=== PATIENT | male | born 1955 | race Caucasian/White ===

== ENCOUNTER → 2019-05-10 00:01 | Outpatient (RCR) | payer OTHER, SELFPAY | LOC: ONCMED 04-11 06:14 | PROVIDERS: Family Provider Emergency Medicine Emergency Medical Services; Visit Provider Internal Medicine Hematology & Oncology | DX: Z51.11 Encounter for antineoplastic chemotherapy (principal); C15.5 Malignant neoplasm of lower third of esophagus; D70.1 Agranulocytosis secondary to cancer chemotherapy; T45.1X5A Adverse effect of antineoplastic and immunosuppressive drugs, initial encounter; Z45.2 Encounter for adjustment and management of vascular access device; I48.91 Unspecified atrial fibrillation; J90 Pleural effusion, not elsewhere classified; G62.0 Drug-induced polyneuropathy; Z79.01 Long term (current) use of anticoagulants; Z90.5 Acquired absence of kidney | CPT/HCPCS: 36415; 36591 ×2; 80053 ×3; 85025 ×4; 96367 ×2; 96368 ×2; 96372 ×2; 96413 ×2; 96415 ×2; 96416 ×2; 96417 ×2; 96523; 99214 ×2; J0640 ×2; J1100 ×2; J1453 ×2; J1642 ×7; J2469 ×2; J2505 ×2; J3490 ×2; J7050 ×2; J9171 ×2; J9263 ×4 ==

== ENCOUNTER 2019-06-10 05:46 | Outpatient (RCR) | payer OTHER, SELFPAY ==
--- NOTE | 2019-05-26 | CT_ITS ---
Radation Therapy Planning CT images; total exam DLP: 1568.77 mGy-cm MTDD
[2019-06-06 13:51] LABS: Basophils % 0.5 %; Eosinophils # 0.4 10^3/uL (0.0-0.8); Eosinophils % 4.7 %; Hematocrit 38.9 % (42.0-52.0); Hemoglobin 12.8 g/dL (11.7-16.6); Lymphocytes # 2.4 10^3/uL (0.8-4.8); Lymphocytes % 31.6 %; Mean Corpuscular HGB Conc 32.9 g/dL (30.0-36.0); Mean Corpuscular Hemoglobin 29.5 pg (28.0-34.0); Mean Corpuscular Volume 89.6 fL (80-94); Mean Platelet Volume 9.2 fL (7.4-10.4); Monocytes # 0.5 10^3/uL (0.2-0.9); Monocytes % 6.3 %; Neutrophils # 4.3 10^3/uL (1.8-7.7); Neutrophils % 56.6 %; Nucleated Red Blood Cells % 0 %; Platelet Count 288 10^3/cmm (130-400); Red Blood Count 4.34 10^6/uL (4.1-5.3); Red Cell Distribution Width 15.7 % (12.1-15.1); White Blood Count 7.5 10^3/uL (4.0-10.0)
[2019-06-06 14:09] LABS: Alanine Aminotransferase 10 U/L (0-41); Alkaline Phosphatase 73 IU/L (40-130); Aspartate Amino Transferase 15 U/L (0-40); Blood Urea Nitrogen 16 mg/dL (8-23); Calcium 9.4 mg/dL (8.5-10.5); Carbon Dioxide 23 mmol/L (22-29); Chloride 103 mmol/L (98-107); Globulin 1.9 g/dL (1.3-4.6); Glomerular Filtration Rate 67.4 mL/min (90-130); Glucose 148 mg/dL (74-106); Sodium 137 mmol/L (136-145); Total Bilirubin 0.7 mg/dL (0.15-1.2); Total Protein 5.9 g/dL (6.6-8.7)
[2019-06-07] MEDS: sodium chloride 0.9% 250 ML 75 ML IV (08:20)
== END 2019-06-10 23:59 | disposition home or self-care (01) ==
LOC: ONCMED 05:46
PROVIDERS: Nurse Practitioner; Family Provider Emergency Medicine Emergency Medical Services; PCP Emergency Medicine Emergency Medical Services; Visit Provider Radiology Radiation Oncology
DX: Z51.0 Encounter for antineoplastic radiation therapy (principal); Z51.11 Encounter for antineoplastic chemotherapy; C15.5 Malignant neoplasm of lower third of esophagus; C77.8 Secondary and unspecified malignant neoplasm of lymph nodes of multiple regions; I48.91 Unspecified atrial fibrillation; J44.9 Chronic obstructive pulmonary disease, unspecified; F10.21 Alcohol dependence, in remission; I10 Essential (primary) hypertension; F17.210 Nicotine dependence, cigarettes, uncomplicated
CPT/HCPCS: 36591; 77263; 77280; 77290; 77300; 77301; 77334; 77338; 77386; 77470; 80053; 85025; 96367; 96413; 96417; 99205; J1100; J1200; J2469; J3490; J7030; J7050; J9045; J9267; Q9967

== ENCOUNTER 2019-07-08 05:42 | Outpatient (RCR) | payer OTHER, SELFPAY ==
[2019-06-13 09:01] LABS: Basophils % 0.5 %; Eosinophils # 0.4 10^3/uL (0.0-0.8); Eosinophils % 5.9 %; Hemoglobin 13.1 g/dL (11.7-16.6); Lymphocytes % 15.9 %; Mean Corpuscular HGB Conc 32.8 g/dL (30.0-36.0); Mean Corpuscular Hemoglobin 29.4 pg (28.0-34.0); Mean Corpuscular Volume 89.7 fL (80-94); Mean Platelet Volume 10.4 fL (7.4-10.4); Monocytes # 0.2 10^3/uL (0.2-0.9); Monocytes % 2.3 %; Neutrophils # 4.9 10^3/uL (1.8-7.7); Neutrophils % 74.8 %; Nucleated Red Blood Cells % 0 %; Platelet Count 306 10^3/cmm (130-400); Red Blood Count 4.46 10^6/uL (4.1-5.3); Red Cell Distribution Width 15.4 % (12.1-15.1); White Blood Count 6.5 10^3/uL (4.0-10.0)
[2019-06-13 09:12] LABS: Alanine Aminotransferase 12 U/L (0-41); Albumin Level 3.5 g/dL (3.5-5.2); Alkaline Phosphatase 77 IU/L (40-130); Anion Gap 15.2 (5-19); Aspartate Amino Transferase 16 U/L (0-40); Blood Urea Nitrogen 14 mg/dL (8-23); Calcium 9.2 mg/dL (8.5-10.5); Carbon Dioxide 25 mmol/L (22-29); Chloride 102 mmol/L (98-107); Globulin 2.5 g/dL (1.3-4.6); Glucose 138 mg/dL (74-106); Potassium 4.2 mmol/L (3.5-5.1); Sodium 138 mmol/L (136-145)
[2019-06-14] MEDS: sodium chloride 0.9% 250 ML 75 ML IV (10:10)
--- NOTE | 2019-06-14 10:20 | ONC FU_ITS ---
Dr. Hatch follow up note Patient: Richard Martin < Unit #: [id number]: 1955 Dicatated By: Srinivas Hatch M.D.Date of Visit:Jun 14, 2019 Onc Med Follow-up/Prog Note History of Present Illness: Mr. Ramos, is a 64-year-old gentleman with history of epigastric pain. Initially it was thought to be due to cardiac, but further evaluation led to GI workup with an EGD/colonoscopy done on 09/28/2018. The EGD exam showed severe inflammation noted in the distal esophagus, biopsies were obtained which confirmed adenocarcinoma.With normal expression of MMR/MSI, HER-2/evgeny negative, PDL 1 negative Stomach and duodenal exam was normal whereas colonoscopy showed 5 mm sessile polyp in hepatic flexure and in descending colon and in the rectum, there were removed ,came back benign. Patient denied any dysphagia, denies any weight loss, denies any hemoptysis or hematemesis, denies any jaundice, denies any shortness of breath. History of atrial fibrillation, on amlodipine and Eliquis He denied any bony pain or other pain, except chronic left upper quadrant abdominal pain which is there off and on for the last 10-12 years, when, as per patient he underwent pancreatic surgery for elevated white blood counts. About year ago patient underwent 'spots' removal from left kidney at [facility] in [place], no further treatment was offered but active surveillance and now scheduled for CT scan of abdomen on 09/24/[address] [place] PET scan done on 10/23/2018 showed hypermetabolic primary esophageal carcinoma. Malignant upper abdominal lymphadenopathy, suspicious mediastinal lymphadenopathy subcentimeter right lower lobe nodule is too small to characterize. Started on FLOT regimen on on 12/23/2018. CT PET scan done after 3 cycles of chemotherapy on 01/22/2019 showed interval improvement in the distal esophageal carcinoma Resolution of upper abdominal and mediastinal lymphadenopathy New small right pleural effusion Patient was referred to GI surgical oncology at [facility], was evaluated by on 02/14/2019 as per discussion with him that discuss about patient in the tumor board and concluded that patient is not a candidate for esophagectomy because of extent of disease and recommended follow-up CT PET scan and continue with palliative chemotherapy. Follow-up CT PET scan after 7 cycles of FLOT regimen done on 04/30/2019 showed excellent response, no evidence of recurrent or residual malignancy. Abnormal uptake in the distal esophagus seen on prior study has normalized on the current, indicating complete response to therapy At that point patient decided not to continue with systemic chemotherapy because of related side effects and toxicity as patient has high risk for local recurrence so role of consolidation therapy with combined chemoradiation was discussed and patient was referred to radiation oncology for evaluation and radiation oncology concur with the plan eventually patient started on combined chemoradiation with weekly carboplatin/Taxol on 06/07/2019. Came for follow-up, denies any specific complaints, no nausea vomiting no fever no chills no diarrhea constipation no mouth sores no dysphagia. No jaundice. No peripheral numbness. Tolerating combined chemoradiation with weekly carboplatin/Taxol well. Medications: amLODIPine Besylate 1 Tablet (of 10 mg) Oral daily, Apixaban 1 Tablet (of 5 mg) Oral b.i.d., Ativan 0.5 - 1 Tablet (of 1 mg) Oral t.i.d., Lisinopril 1 Tablet (of 40 mg) Oral b.i.d., Prochlorperazine Maleate 1 Tablet (of 10 mg) Oral q 4 hours, Sildenafil Citrate 1 Tablet (of 100 mg) Oral PRN, Vitamin D 1 Tablet Oral daily Allergies: No Known Allergies. Review of Systems: Constitutional - Appetite is good and weight is stable. No fever, chills, hot flashes, or night sweats. Energy level is fair, ENMT - Positive for sinus congestion/drainage. No mouth sores. No sore throat. No difficulty swallowing, Hematologic/Lymphatic - No abnormal bruising or bleeding, Respiratory - Positive for shortness of breath and cough. No pleuritic pain or hemoptysis, Cardiovascular - No angina pain. Pt reports occasional palpitations, Gastrointestinal - Positive for occasional nausea. No vomiting. No heartburn or acid reflux. No diarrhea or constipation. No blood in the stool or black stools, Genitourinary (M) - No dysuria or hematuria. No urinary frequency. No urgency or incontinence, Musculoskeletal - Pt reports bone pain, Neurologic - No headache or dizziness. No numbness/paresthesias or other focal neurologic symptoms, Psychiatric - No anxiety or depression. No insomnia. Vital Signs: Performed on Jun 14, 2019 09:37 Height - 72.00 in Weight - 195.6 lbs Temperature - 97.6 F Pulse - 63 Respiration - 16 BP - 136/93 mm(hg) O2 Sat - 98 % Pain - 0 Performed on Jun 14, 2019 09:37 BMI - 26.528 kg/m2 (HIGH) Performed on Jun 14, 2019 08:33 Height - 72.00 in Weight - 195.6 lbs (LOW) BSA - 2.11 sq.m BMI - 26.53 Temperature - 97.6 F (LOW) Pulse - 63 /min Respiration - 16 /min BP - 136/93 mm(hg) O2 Sat - 98 % Pain - 0 Performance Status: 0 - Fully active, able to carry on all predisease activities without restrictions. (ECOG) Physical Examination: ENMT - Sinuses are nontender. No oral exudates, ulcers, masses, thrush or mucositis. Oropharynx clear. Tongue normal, Respiratory - Lungs are clear to auscultation without rhonchi or wheezing, Cardiovascular - Regular rate and rhythm of heart, Abdomen - Non-tender, non-distended Good bowel sounds. No guarding or rebound tenderness. No pulsatile masses, Extremities - no edema. Lab/Imaging: Test performed on Jun 13, 2019 08:15 Sodium 138 mmol/L Potassium 4.2 mmol/L Chloride 102 mmol/L CO2 25 mmol/L Anion Gap 15.2 BUN 14 mg/dL Creatinine 0.9 mg/dL Cr Clearance (Est) 104.3800 mL/min eGFR 85.0 mL/min Glucose 138 mg/dL Calcium 9.2 mg/dL Protein, Total 6.0 g/dL Albumin 3.5 g/dL Globulin 2.5 g/dL Bilirubin, Total 1.0 mg/dL ALT (SGPT) 12 U/L AST (SGOT) 16 U/L Alkaline Phosphatase 77 IU/L WBC 6.5 10 3/uL RBC 4.46 10 6/uL HGB 13.1 g/dL HCT 40.0 % MCV 89.7 fL MCH 29.4 pg MCHC 32.8 g/dL RDW 15.4 % Platelet Count 306 10 3/cmm MPV 10.4 fL Neutrophils 4.9 10 3/uL Lymphocytes 1.0 10 3/uL Monocytes 0.2 10 3/uL Eosinophils 0.4 10 3/uL Basophils 0.0 10 3/uL Neutrophil % 74.8 % Lymphocyte % 15.9 % Monocyte % 2.3 % Eosinophil % 5.9 % Basophils % 0.5 % Test performed on Jan 03, 2019 09:50 CBC Slide Review SLIDE REVIEW PERFORM SLIDE REVIEW AGREES WITH AUTOMATED RESULTS ST Impression: 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 pylori CT PET scan done on 10/23/2018 showed hypermetabolic activity in the distal one third of esophagus and the mass measuring 3.4 x 4.5 cm with SUV of 7.8. Metastatic adenopathy is present in the gastrohepatic ligament, peripancreatic nodes, and retroperitoneal lymph node in the right and left periaortic distributions. The index node in the gastrohepatic ligament measures 1.7 cm with FDG 3.1. In the mediastinum, there are multiple suspicious nodes in the right paratracheal and left paraesophageal territories. These have a high likelihood of malignancy Clinical stage T2-3, , N2,, MX HER-2/evgeny negative, PDL 1 negative, normal expression of MMR/MSI History of pancreatic surgery about 10-12 years ago for elevated white blood count now with off and on left upper quadrant pain/discomfort History of spot removal from his left kidney about year ago in [facility], now being observed with active surveillance. History of cholecystectomy Colonoscopy done on 09/28/2018 showed normal exam except benign sessile polyps removal from hepatic flexure, descending colon and rectum and also showed internal hemorrhoids. 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 Molecular studies negative for HER-2/evgeny status, and PDL 1. And normal expression of MMR/MSI. recommended treatment with FLOT regimen which will be given every 2 weeks ???[address] PET scan to assedess disease response. recommended adjusting his 5-FU dose by 15% for the first treatment, if tolerated then increase to the 100% as per protocol. Mr. Martin began his first cycle of treatment on 12/13/2018. He did have chemotherapy-induced neutropenia and was supported with Neupogen. His counts are recovered well. now on neulasta CT PET scan done after 3 cycles of chemotherapy with FLOT regimen showed good response interval improvement in distal esophageal carcinoma Resolution of upper abdominal and mediastinal lymphadenopathy New, small right pleural effusion. CT PET scan done after 7 cycles of FLOT regimen showed excellent response. No evidence of recurrent or residual malignancy. Abnormal uptake seen in distal esophageal on prior study has normalized. Patient decided to discontinue systemic chemotherapy on 04/25/2019 because of related side effect and toxicity, knowing the risk versus benefits with his decision. At that time role of consolidation therapy with combined chemoradiation therapy with weekly carboplatin and Taxol was discussed. Patient was referred to radiation oncology and they concur with the plan patient was started on combined chemoradiation with weekly carboplatin Taxol on 06/07/2019 Plan: Discussed with patient regarding his labs white blood count 6.5 hemoglobin 13.1 crit 40 platelets 306,000 CMP within normal limits Clinically, patient is doing well, tolerating combined chemoradiation with weekly carboplatin/Taxol well but with expected side effects. We'll proceed with the next weekly dose of carboplatin/Taxol today and then return to clinic in 1 week with CBC CMP. Signed By: Srinivas Hatch M.D. <<Signature on File>>
--- NOTE | 2019-06-14 11:51 | ONCRAD TMN_ITS ---
Radiation Oncology Weekly Treatment Management Patient: Richard Martin MR#: [id number] : 1955> Age: 64> Sex: Male Dictated by: Dr. Rohith Welch Date of Service: 06/14/2019 Referring Physician(s) : Srinivas Hatch Primary Diagnosis: T45.1X5A - Adverse effect of antineoplastic and immunosuppressive drugs, initial encounter, Diagnosed 12/21/2018 (Active) D70.1 - Agranulocytosis secondary to cancer chemotherapy, Diagnosed 12/21/2018 (Active) C15.5 - Malignant neoplasm of lower third of esophagus, Diagnosed 09/28/2018 (Active) Radiotherapy to date: Course: Esophagus 2019, Treatment Site: [id number], Ref. ID: [id number], Energy: 15X/6X, Dose/Fx (cGy): 180, #Fx: , Dose Correction (cGy): 0, Total Dose (cGy): 1,080, Start Date: 06/07/2019, Elapsed Days: 7 Current Complaints/Interval History: Constitutional Complains of mild fatigue, and night sweats. Denies lack of appetite, fever and change in weight. ENMT Denies dysphagia but has mild odynophagia off and on. Respiratory Notes dyspnea associated with normal activity and wheezing occasionally. Denies cough and hiccoughs. Gastrointestinal Complains of nausea. Denies abdominal pain, constipation, diarrhea, heartburn / dyspepsia and vomiting. Current Medications: AmLODIPine Besylate, apixaban, ativan, cARBOplatin, dexamethasone, dexamethasone Sodium Phosphate, diphenhydrAMINE HCl, famotidine in NaCl, levoFLOXacin, lisinopril, lORazepam, neupogen, pACLitaxel, palonosetron HCl, prochlorperazine Maleate, prochlorperazine Maleate, sildenafil Citrate, vitamin D. Allergies: No Known Allergies Vital Signs: Performed on 06/14/2019 8:33 AM Height - 72.00 in, Weight - 195.6 lbs (low), BSA - 2.11 sq.m, BMI - 26.53, Temperature - 97.6 f (low), Pulse - 63 /min, Respiration - 16 /min, O2 Sat - 98 %, Pain - 0 and BP - 136/ 93 mm(hg)(/high). Physical Exam: Appears stable, no skin erythema or desquamation. Performance Status: 0 - Fully active, able to carry on all predisease activities without restrictions. (ECOG) Lab: Test performed on 06/13/2019 8:15 AM HCT - 40.0 % (low), RDW - 15.4 % (high), eGFR - 85.0 ml/min (low), Glucose - 138 mg/dl (high) and Protein, Total - 6.0 g/dl (low). Imaging: No new diagnostic imaging was performed since the last weekly treatment visit. All radiation therapy related imaging (including but not limited to CBCT generated images) was reviewed. Appropriate changes, if any, were made to assure accurate target localization. Impression/Plan: Tolerating treatment well with expected side effects. Continue treatment as planned. CPT: 13517 Signed by: Dr. Rohith Welch>06/14/2019 11:49:50 AM <<Signature on File>>
[2019-06-20 08:56] LABS: Basophils % 0.6 %; Eosinophils # 0.1 10^3/uL (0.0-0.8); Eosinophils % 3.1 %; Hematocrit 35.6 % (42.0-52.0); Hemoglobin 11.7 g/dL (11.7-16.6); Lymphocytes # 0.3 10^3/uL (0.8-4.8); Lymphocytes % 10.3 %; Mean Corpuscular HGB Conc 32.9 g/dL (30.0-36.0); Mean Corpuscular Hemoglobin 28.5 pg (28.0-34.0); Mean Corpuscular Volume 86.6 fL (80-94); Monocytes # 0.1 10^3/uL (0.2-0.9); Monocytes % 2.2 %; Neutrophils # 2.7 10^3/uL (1.8-7.7); Neutrophils % 83.2 %; Nucleated Red Blood Cells % 0 %; Platelet Count 247 10^3/cmm (130-400); Red Blood Count 4.11 10^6/uL (4.1-5.3); Red Cell Distribution Width 15.3 % (12.1-15.1); White Blood Count 3.2 10^3/uL (4.0-10.0)
[2019-06-20 09:15] LABS: Alanine Aminotransferase 13 U/L (0-41); Albumin Level 3.2 g/dL (3.5-5.2); Alkaline Phosphatase 75 IU/L (40-130); Anion Gap 14.7 (5-19); Aspartate Amino Transferase 18 U/L (0-40); Blood Urea Nitrogen 19 mg/dL (8-23); Calcium 9.1 mg/dL (8.5-10.5); Carbon Dioxide 23 mmol/L (22-29); Chloride 104 mmol/L (98-107); Globulin 2.1 g/dL (1.3-4.6); Glomerular Filtration Rate 97.3 mL/min (90-130); Glucose 101 mg/dL (65-115); Potassium 4.7 mmol/L (3.5-5.1); Sodium 137 mmol/L (136-145); Total Bilirubin 1.1 mg/dL (0.15-1.2); Total Protein 5.3 g/dL (6.6-8.7)
--- NOTE | 2019-06-21 09:59 | ONCRAD TMN_ITS ---
Radiation Oncology Weekly Treatment Management Patient: Richard Martin MR#: [id number] : 1955> Age: 64> Sex: Male Dictated by: Dr. Rohith Welch Date of Service: 06/21/2019 Referring Physician(s) : Srinivas Hatch M.D. Primary Diagnosis: T45.1X5A - Adverse effect of antineoplastic and immunosuppressive drugs, initial encounter, Diagnosed 12/21/2018 (Active) D70.1 - Agranulocytosis secondary to cancer chemotherapy, Diagnosed 12/21/2018 (Active) C15.5 - Malignant neoplasm of lower third of esophagus, Diagnosed 09/28/2018 (Active) Radiotherapy to date: Course: Esophagus 2019, Treatment Site: [id number], Ref. ID: , [id number], Energy: 15X/6X, Dose/Fx (cGy): 180, #Fx: , Dose Correction (cGy): 0, Total Dose (cGy): 1,980, Start Date: 06/07/2019, Elapsed Days: 14 Current Complaints/Interval History: Constitutional Complains of mild fatigue, night sweats which occur occasionally. Denies lack of appetite, fever and change in weight. ENMT Complains of dysphagia and also has odynophagia occasionally and altered taste. Integumentary No redness to the area of treatment Respiratory Has a mild cough and dyspnea associated with normal activity. Denies wheezing. Gastrointestinal Complains of nausea. Denies heartburn / dyspepsia and vomiting. Current Medications: AmLODIPine Besylate, apixaban, ativan, cARBOplatin, dexamethasone, dexamethasone Sodium Phosphate, diphenhydrAMINE HCl, famotidine in NaCl, levoFLOXacin, lisinopril, lORazepam, neupogen, pACLitaxel, palonosetron HCl, prochlorperazine Maleate, prochlorperazine Maleate, sildenafil Citrate, vitamin D. Allergies: No Known Allergies Vital Signs: Performed on 06/21/2019 9:32 AM BMI - 26.501 kg/m2 (high), Height - 72.00 in, Weight - 195.4 lbs, Temperature - 97.8 f, Pulse - 94, Respiration - 18, O2 Sat - 100 %, Pain - 2, BP - 133/ 90 mm(hg) Physical Exam: Appears stable, no skin erythema or desquamation. Performance Status: 0 - Fully active, able to carry on all predisease activities without restrictions. (ECOG) Lab: Test performed on 06/20/2019 8:35 AM WBC - 3.2 10 3/ul (low), HCT - 35.6 % (low), RDW - 15.3 % (high), Lymphocytes - 0.3 10 3/ul (low), Monocytes - 0.1 10 3/ul (low), Protein, Total - 5.3 g/dl (low) and Albumin - 3.2 g/dl (low). Imaging: No new diagnostic imaging was performed since the last weekly treatment visit. All radiation therapy related imaging (including but not limited to CBCT generated images) was reviewed. Appropriate changes, if any, were made to assure accurate target localization. Impression/Plan: Tolerating treatment well with expected side effects. Continue treatment as planned. I recommended magic mouth wash but the patient declined it for now. CPT: 45458 Signed by: Dr. Rohith Welch>06/21/2019 9:58:32 AM <<Signature on File>>
[2019-06-21] MEDS: sodium chloride 0.9% 250 ML 300 ML IV (10:16)
--- NOTE | 2019-06-21 10:22 | ONC FU_ITS ---
[facility] Patient Note Patient: Richard Martin < Unit #: [id number]: 1955 Dictated By: Darya WattsDate of Visit: Jun 21, 2019 Onc MED Follow-Up/Prog Note Chief Complaint: Esophageal cancer History of Present Illness: Mr. Ramos is a 64-year-old gentleman with history of epigastric pain. Initially it was thought to be due to cardiac, but further evaluation led to GI workup with an EGD/colonoscopy done on 09/28/2018. The EGD exam showed severe inflammation noted in the distal esophagus, biopsies were obtained which confirmed adenocarcinoma.With normal expression of MMR/MSI, HER-2/evgeny negative, PDL 1 negative Stomach and duodenal exam was normal whereas colonoscopy showed 5 mm sessile polyp in hepatic flexure and in descending colon and in the rectum, there were removed ,came back benign. Patient denied any dysphagia, denies any weight loss, denies any hemoptysis or hematemesis, denies any jaundice, denies any shortness of breath. History of atrial fibrillation, on amlodipine and Eliquis He denied any bony pain or other pain, except chronic left upper quadrant abdominal pain which is there off and on for the last 10-12 years, when, as per patient he underwent pancreatic surgery for elevated white blood counts. About year ago patient underwent 'spots' removal from left kidney at [facility] in [place], no further treatment was offered but active surveillance and scheduled for CT scan of abdomen on 09/24/[address] [place] PET scan done on 10/23/2018 showed hypermetabolic primary esophageal carcinoma. Malignant upper abdominal lymphadenopathy, suspicious mediastinal lymphadenopathy subcentimeter right lower lobe nodule is too small to characterize. Started on FLOT regimen on on 12/23/2018. CT PET scan done after 3 cycles of chemotherapy on 01/22/2019 showed interval improvement in the distal esophageal carcinoma Resolution of upper abdominal and mediastinal lymphadenopathy New small right pleural effusion Patient was referred to GI surgical oncology at [facility], was evaluated by on 02/14/2019 as per discussion with him that discuss about patient in the tumor board and concluded that patient is not a candidate for esophagectomy because of extent of disease and recommended follow-up CT PET scan and continue with palliative chemotherapy. Follow-up CT PET scan after 7 cycles of FLOT regimen done on 04/30/2019 showed excellent response, no evidence of recurrent or residual malignancy. Abnormal uptake in the distal esophagus seen on prior study has normalized on the current, indicating complete response to therapy At that point, Mr Martin decided not to continue with systemic chemotherapy because of related side effects and toxicity. As he has high risk for local recurrence the role of consolidation therapy with combined chemoradiation was discussed. Mr Martin was referred to radiation oncology for evaluation and radiation oncology concurred with the plan and eventually Mr Martin elected to started on combined chemoradiation with weekly carboplatin/Taxol. He began treatment on 06/07/2019. Mr. Martin is here today for follow-up. He has completed 2 weeks of the carboplatin paclitaxel. 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 He states is not as bad as it originally was with his first chemotherapy but it definitely has flared. He states the pain is uncomfortable but not unbearable . It has not interfered with any of his activities of daily living. He can still button his shirt with no problems. He has had no nausea or vomiting. He states he has had occasional night sweats but no fever or chills. He denies any headache or vision changes. He has had no hearing changes that he is aware of. He has had some flare of his tinnitus which is chronic. He states that he is followed at the [facility] for that will be having a hearing test with them soon. He states he is eating good. He is very active. He states his been lifting some light weights to try to build my strength up . He also states that he is walking 1 to 2 miles a day and this seems to help with the neuropathy in his feet. He denies any pain. He is swallowing better. He denies any angina. He states his breathing is about the same. [facility] . Overall he seems to be tolerating chemotherapy well at this time although I am somewhat concerned about the recurrence of his neuropathy. He has been advised me to watch that very carefully as it could be permanent. His ECOG is 0. Past Medical History: Atrial fibrillation Chronic obstructive pulmonary disease Dysphagia History of alcohol abuse Hypertension Impaired hearing Past Surgical History: Cholecystectomy Portacatheter placement dr. ramos in 2018 Colonoscopy in 2018 Tumors removed from left kidney in 2017 Appendectomy in 1995 Allergies: No Known Allergies. Medications: amLODIPine Besylate 1 Tablet (of 10 mg) Oral daily Apixaban 1 Tablet (of 5 mg) Oral b.i.d. Ativan 0.5 - 1 Tablet (of 1 mg) Oral t.i.d. Lisinopril 1 Tablet (of 40 mg) Oral b.i.d. Prochlorperazine Maleate 1 Tablet (of 10 mg) Oral q 4 hours Sildenafil Citrate 1 Tablet (of 100 mg) Oral PRN Vitamin D 1 Tablet Oral daily Family History: Mr. Martin's mother at age 86: Colon Cancer. Mr. Martin's father at age 82: Prostate Cancer. Mr. Martin has 2 brothers: 2 . Mr. Martin's first brother's head & neck (misc) cancer. One brother had metastatic cancer throughout his body when he was diagnosed. 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 He is a daily smoker who has smoked 0.5 packs/day for 45 years. Review Of Symptoms: Constitutional Denies fevers, chills, excessive fatigue or weight loss. Some occasional night sweats but denies fever. Has been walking 1-2 miles a day. Allergic/Immunologic No reactions. Eyes Denies significant visual changes. No diplopia. No amaurosis. ENMT Denies changes in hearing, sore throat, mouth sores, difficulty or changes in swallowing ability, and/or sinus drainage. Hematologic/Lymphatic Denies easy bruising or bleeding. The patient denies any tender or palpable lymph nodes. Respiratory Denies dyspnea on exertion, chest pain, cough or hemoptysis. Denies orthopnea. Cardiovascular Denies anginal chest pain, palpitations or orthopnea. Gastrointestinal Denies nausea, vomiting, diarrhea, GI bleeding, or constipation. Denies change in bowel habits and/or stool color, no heartburn or early satiety. Swallowing much better and eating good. Genitourinary (M) Denies hematuria, dysuria, increased frequency, urgency, hesitancy or incontinence. Musculoskeletal Denies joint pain, swelling or redness. No decreased range of motion. Integumentary Denies chronic rashes, inflammation, ulcerations or skin changes. Neurologic Denies headache, blurred vision, and no areas of focal weakness or numbness. Normal gait. No sensory problems. Psychiatric Denies insomnia, depression, ignacio or mood swings. Constitutional Complains of mild fatigue. Complains of night sweats which occur occasionally. Denies lack of appetite, fever and change in weight. ENMT Complains of dysphagia and also has odynophagia occasionally and altered taste. Integumentary No redness to the area of treatment Respiratory Complains of a mild cough. Complains of dyspnea associated with normal activity. Denies wheezing. Gastrointestinal Complains of nausea. Denies heartburn / dyspepsia and vomiting. Vital Signs: Performed on Jun 21, 2019 09:38 Height - 72.00 in Weight - 195.4 lbs BSA - 2.11 sq.m BMI - 26.50 Temperature - 97.8 F (LOW) Pulse - 94 /min Respiration - 18 /min BP - 133/90 mm(hg) O2 Sat - 100 % Pain - 2 Fatigue - 2 Performed on Jun 21, 2019 09:32 Height - 72.00 in Weight - 195.4 lbs Temperature - 97.8 F Pulse - 94 Respiration - 18 BP - 133/90 mm(hg) O2 Sat - 100 % Pain - 2 Performed on Jun 21, 2019 09:32 BMI - 26.501 kg/m2 (HIGH),0 - Fully active, able to carry on all predisease activities without restrictions. (ECOG) Physical Examination: Constitutional Alert, oriented, no acute distress. Skin pink, warm and dry. Head Normocephalic; atraumatic. Eyes Conjunctivae and sclerae are clear and without icterus. Pupils are reactive and equal. ENMT No oral exudates, ulcers, masses, thrush or mucositis. Oropharynx clear. Tongue normal. Right ear with mild cerumen impaction, left ear unremarkable. Neck Supple without masses or thyromegaly. No jugular venous distension. Hematologic/Lymphatic No petechiae or purpura. No tender or palpable lymph nodes in the cervical or supraclavicular areas. Respiratory Lungs are clear to auscultation without rhonchi or wheezing. Cardiovascular Regular rate and rhythm of heart without murmurs,clicks, gallops or rubs. Back/Spine Non-tender to palpation. Extremities No visible deformities, no cyanosis, clubbing or edema. Musculoskeletal No tenderness or swelling, normal range of motion without obvious weakness. Integumentary No rashes or lesions. Neurologic No sensory or motor deficits, normal cerebellar function, normal gait. Psychiatric Alert and oriented times three. Coherent speech. Verbalizes understanding of our discussions today. Laboratory:Test performed on Jun 20, 2019 08:35 Sodium 137 mmol/L Potassium 4.7 mmol/L Chloride 104 mmol/L CO2 23 mmol/L Anion Gap 14.7 BUN 19 mg/dL Creatinine 0.8 mg/dL Cr Clearance (Est) 117.4300 mL/min eGFR 97.3 mL/min Glucose 101 mg/dL Calcium 9.1 mg/dL Protein, Total 5.3 g/dL Albumin 3.2 g/dL Globulin 2.1 g/dL Bilirubin, Total 1.1 mg/dL ALT (SGPT) 13 U/L AST (SGOT) 18 U/L Alkaline Phosphatase 75 IU/L WBC 3.2 10 3/uL RBC 4.11 10 6/uL HGB 11.7 g/dL HCT 35.6 % MCV 86.6 fL MCH 28.5 pg MCHC 32.9 g/dL RDW 15.3 % Platelet Count 247 10 3/cmm MPV 10.0 fL Neutrophils 2.7 10 3/uL Lymphocytes 0.3 10 3/uL Monocytes 0.1 10 3/uL Eosinophils 0.1 10 3/uL Basophils 0.0 10 3/uL Neutrophil % 83.2 % Lymphocyte % 10.3 % Monocyte % 2.2 % Eosinophil % 3.1 % Basophils % 0.6 % Test performed on Jan 03, 2019 09:50 CBC Slide Review SLIDE REVIEW PERFORM SLIDE REVIEW AGREES WITH AUTOMATED RESULTS ST Impression: 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 pylori CT PET scan done on 10/23/2018 showed hypermetabolic activity in the distal one third of esophagus and the mass measuring 3.4 x 4.5 cm with SUV of 7.8. Metastatic adenopathy is present in the gastrohepatic ligament, peripancreatic nodes, and retroperitoneal lymph node in the right and left periaortic distributions. The index node in the gastrohepatic ligament measures 1.7 cm with FDG 3.1. In the mediastinum, there are multiple suspicious nodes in the right paratracheal and left paraesophageal territories. These have a high likelihood of malignancy Clinical stage T2-3, , N2,, MX HER-2/evgeny negative, PDL 1 negative, normal expression of MMR/MSI History of pancreatic surgery about 10-12 years ago for elevated white blood count now with off and on left upper quadrant pain/discomfort History of spot removal from his left kidney about year ago in [facility], now being observed with active surveillance. History of cholecystectomy Colonoscopy done on 09/28/2018 showed normal exam except benign sessile polyps removal from hepatic flexure, descending colon and rectum and also showed internal hemorrhoids. 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 Molecular studies negative for HER-2/evgeny status, and PDL 1. And normal expression of MMR/MSI. recommended treatment with FLOT regimen which will be given every 2 weeks ???[address] PET scan to assedess disease response. recommended adjusting his 5-FU dose by 15% for the first treatment, if tolerated then increase to the 100% as per protocol. Mr. Martin began his first cycle of treatment on 12/13/2018. He did have chemotherapy-induced neutropenia and was supported with Neupogen. His counts are recovered well. now on neulasta CT PET scan done after 3 cycles of chemotherapy with FLOT regimen showed good response interval improvement in distal esophageal carcinoma Resolution of upper abdominal and mediastinal lymphadenopathy New, small right pleural effusion. CT PET scan done after 7 cycles of FLOT regimen showed excellent response. No evidence of recurrent or residual malignancy. Abnormal uptake seen in distal esophageal on prior study has normalized. Patient decided to discontinue systemic chemotherapy on 04/25/2019 because of related side effect and toxicity, knowing the risk versus benefits with his decision. At that time role of consolidation therapy with combined chemoradiation therapy with weekly carboplatin and Taxol was discussed. Patient was referred to radiation oncology and they concur with the plan patient was started on combined chemoradiation with weekly carboplatin Taxol on 06/07/2019 Plan: . Proceed with week 3 carboplatin paclitaxel. 2. Steroid compliance confirmed. 3. Labs from June 20, 2019 were reviewed in detail and discussed with Mr. Cannon and a copy was given to him. WBC 3.2, hemoglobin 11.7, platelets 247,000 ANC is 2700 (down from 4900 last week) creatinine 0.8 LFTs are normal. 4. We will need to watch the neuropathy in his fingers and toes he has had a flare from his previous chemotherapy but states it is nothing that is intolerable at this point. He states he can do all his ADLs without any interference with the neuropathy at this time. He does not want try to medication for the discomfort that he does have with it. 5. He states that he will [facility] . He has a history of tinnitus and they are monitoring his hearing for that. 6. We will plan to see him back in 1 week with CBC CMP consideration of week for carboplatin paclitaxel. 7. Mr. Martin was instructed to contact us in the interim should questions or problems arise. Signed By: Darya Watts-, [facility] Srinivas Hatch MD <<Signature on File>>
[2019-06-27 08:51] LABS: Basophils % 0.8 %; Eosinophils % 2.4 %; Hematocrit 36.1 % (42.0-52.0); Lymphocytes # 0.3 10^3/uL (0.8-4.8); Lymphocytes % 21.1 %; Mean Corpuscular HGB Conc 33.2 g/dL (30.0-36.0); Mean Corpuscular Hemoglobin 29.8 pg (28.0-34.0); Mean Corpuscular Volume 89.6 fL (80-94); Mean Platelet Volume 9.6 fL (7.4-10.4); Monocytes # 0.1 10^3/uL (0.2-0.9); Monocytes % 6.5 %; Neutrophils % 68.4 %; Nucleated Red Blood Cells % 0 %; Platelet Count 240 10^3/cmm (130-400); Red Blood Count 4.03 10^6/uL (4.1-5.3); Red Cell Distribution Width 15.6 % (12.1-15.1); White Blood Count 1.2 10^3/uL (4.0-10.0)
[2019-06-27 08:52] LABS: Neutrophils # 0.8 10^3/uL (1.8-7.7)
[2019-06-27 08:55] LABS: Alanine Aminotransferase 9 U/L (0-41); Albumin Level 3.3 g/dL (3.5-5.2); Alkaline Phosphatase 67 IU/L (40-130); Anion Gap 13.8 (5-19); Aspartate Amino Transferase 18 U/L (0-40); Blood Urea Nitrogen 20 mg/dL (8-23); Calcium 9.4 mg/dL (8.5-10.5); Carbon Dioxide 25 mmol/L (22-29); Chloride 101 mmol/L (98-107); Globulin 2.4 g/dL (1.3-4.6); Glomerular Filtration Rate 75.2 mL/min (90-130); Glucose 105 mg/dL (65-115); Potassium 4.8 mmol/L (3.5-5.1); Sodium 135 mmol/L (136-145); Total Bilirubin 1.1 mg/dL (0.15-1.2); Total Protein 5.7 g/dL (6.6-8.7)
--- NOTE | 2019-06-28 09:39 | ONCRAD TMN_ITS ---
Radiation Oncology Weekly Treatment Management Patient: Richard Martin MR#: [id number] : 1955> Age: 64> Sex: Male Dictated by: Dr. Rohith Welch Date of Service: 06/28/2019 Referring Physician(s) : Srinivas Hatch M.D. Primary Diagnosis: T45.1X5A - Adverse effect of antineoplastic and immunosuppressive drugs, initial encounter, Diagnosed 12/21/2018 (Active) D70.1 - Agranulocytosis secondary to cancer chemotherapy, Diagnosed 12/21/2018 (Active) C15.5 - Malignant neoplasm of lower third of esophagus, Diagnosed 09/28/2018 (Active) Radiotherapy to date: Course: Esophagus 2019, Treatment Site: [id number], Ref. ID: [id number], Energy: 15X/6X, Dose/Fx (cGy): 180, #Fx: 16 / 25, Dose Correction (cGy): 0, Total Dose (cGy): 2,880, Start Date: 06/07/2019, Elapsed Days: 21 Current Complaints/Interval History: Constitutional Complains of lack of appetite off and on. Complains of mild fatigue. Denies fever and night sweats. ENMT Complains of dysphagia occasionally and also has odynophagia once in a while. Respiratory Complains of a mild cough which is productive off and on. Complains of dyspnea associated with normal activity. Denies hemoptysis and wheezing. Gastrointestinal Complains of mild heartburn / dyspepsia and nausea. Denies abdominal pain, diarrhea and vomiting. Musculoskeletal Has bilateral lower rib pain Current Medications: AmLODIPine Besylate, apixaban, ativan, cARBOplatin, dexamethasone, dexamethasone Sodium Phosphate, diphenhydrAMINE HCl, famotidine in NaCl, levoFLOXacin, lisinopril, lORazepam, neupogen, pACLitaxel, palonosetron HCl, prochlorperazine Maleate, prochlorperazine Maleate, sildenafil Citrate, vitamin D. Allergies: No Known Allergies Vital Signs: Performed on 06/28/2019 8:53 AM BMI - 26.149 kg/m2 (high), Height - 72.00 in, Weight - 192.8 lbs, Temperature - 97.4 f, Pulse - 70, Respiration - 18, O2 Sat - 100 %, Pain - 0 and BP - 130/ 81 mm(hg). Physical Exam: Appears stable, no skin erythema or desquamation. Performance Status: 0 - Fully active, able to carry on all predisease activities without restrictions. (ECOG) Lab: Test performed on 06/27/2019 8:25 AM WBC - 1.2 10 3/ul (low), RBC - 4.03 10 6/ul (low), HCT - 36.1 % (low), RDW - 15.6 % (high), Neutrophils - 0.8 10 3/ul (low), Lymphocytes - 0.3 10 3/ul (low), Monocytes - 0.1 10 3/ul (low), Sodium - 135 mmol/l (low), eGFR - 75.2 ml/min (low), Protein, Total - 5.7 g/dl (low) and Albumin - 3.3 g/dl (low). Imaging: No new diagnostic imaging was performed since the last weekly treatment visit. All radiation therapy related imaging (including but not limited to kV, MV, and CBCT generated images) was reviewed. Appropriate changes, if any, were made to assure accurate target localization. Impression/Plan: Tolerating treatment well with expected side effects. Continue treatment as planned. Continue magic mouth wash CPT: 73948 Signed by: Dr. Rohith Welch>06/28/2019 9:38:22 AM <<Signature on File>>
[2019-07-04 09:24] LABS: Basophils % 1.5 %; Hematocrit 35.6 % (42.0-52.0); Hemoglobin 11.7 g/dL (11.7-16.6); Lymphocytes # 0.3 10^3/uL (0.8-4.8); Lymphocytes % 16.6 %; Mean Corpuscular HGB Conc 32.9 g/dL (30.0-36.0); Mean Corpuscular Volume 88.3 fL (80-94); Mean Platelet Volume 8.9 fL (7.4-10.4); Monocytes # 0.5 10^3/uL (0.2-0.9); Monocytes % 22.9 %; Neutrophils # 1.2 10^3/uL (1.8-7.7); Neutrophils % 56.5 %; Nucleated Red Blood Cells % 0 %; Platelet Count 162 10^3/cmm (130-400); Red Blood Count 4.03 10^6/uL (4.1-5.3); Red Cell Distribution Width 16.6 % (12.1-15.1); White Blood Count 2.1 10^3/uL (4.0-10.0)
[2019-07-04 09:46] LABS: Alanine Aminotransferase 14 U/L (0-41); Albumin Level 3.4 g/dL (3.5-5.2); Alkaline Phosphatase 66 IU/L (40-130); Anion Gap 14.4 (5-19); Aspartate Amino Transferase 19 U/L (0-40); Blood Urea Nitrogen 16 mg/dL (8-23); Calcium 9.5 mg/dL (8.5-10.5); Carbon Dioxide 24 mmol/L (22-29); Chloride 101 mmol/L (98-107); Globulin 2.5 g/dL (1.3-4.6); Glomerular Filtration Rate 97.3 mL/min (90-130); Glucose 110 mg/dL (65-115); Potassium 4.4 mmol/L (3.5-5.1); Sodium 135 mmol/L (136-145); Total Bilirubin 0.5 mg/dL (0.15-1.2); Total Protein 5.9 g/dL (6.6-8.7)
--- NOTE | 2019-07-06 10:24 | ONCRAD TMN_ITS ---
Radiation Oncology Weekly Treatment Management Patient: Richard Martin MR#: [id number] : 1955> Age: 64> Sex: Male Dictated by: Dr. Rohith Welch Date of Service: 07/06/2019 Referring Physician(s) : Srinivas Hatch Primary Diagnosis: T45.1X5A - Adverse effect of antineoplastic and immunosuppressive drugs, initial encounter, Diagnosed 12/21/2018 (Active) D70.1 - Agranulocytosis secondary to cancer chemotherapy, Diagnosed 12/21/2018 (Active) C15.5 - Malignant neoplasm of lower third of esophagus, Diagnosed 09/28/2018 (Active) Radiotherapy to date: Course: Esophagus 2019, Treatment Site: [id number], Ref. ID: [id number], Energy: 15X/6X, Dose/Fx (cGy): 180, #Fx: , Dose Correction (cGy): 0, Total Dose (cGy): 3,960, Start Date: 06/07/2019, Elapsed Days: 29 Current Complaints/Interval History: Constitutional Complains of lack of appetite, mild fatigue and weight loss of 3.6 lbs. since last OTV on 06/28/19. Denies fever and night sweats. ENMT Complains of odynophagia and dysphagia occasionally and altered taste. Respiratory Complains of a mild cough and dyspnea associated with normal activity. Denies wheezing. Gastrointestinal Complains of mild heartburn / dyspepsia, nausea and satiety. Denies abdominal pain, constipation, diarrhea and vomiting. Has lots of gas and burping Current Medications: AmLODIPine Besylate, apixaban, ativan, cARBOplatin, dexamethasone, dexamethasone Sodium Phosphate, diphenhydrAMINE HCl, famotidine in NaCl, levoFLOXacin, lisinopril, lORazepam, neupogen, pACLitaxel, palonosetron HCl, prochlorperazine Maleate, prochlorperazine Maleate, sildenafil Citrate, vitamin D. Allergies: No Known Allergies Vital Signs: Performed on 07/06/2019 8:50 AM BMI - 25.66 kg/m2 (high), Height - 72.00 in, Weight - 189.2 lbs, Temperature - 97.4 f, Pulse - 67, Respiration - 20, O2 Sat - 100 %, Pain - 0 and BP - 118/ 86 mm(hg). Physical Exam: Appears stable, no skin erythema or desquamation. Performance Status: 1 - No physically strenuous activity, but ambulatory and able to carry out light or sedentary work (e.g. office work, light house work). (ECOG) Lab: Test performed on 07/04/2019 9:01 AM WBC - 2.1 10 3/ul (low), RBC - 4.03 10 6/ul (low), HCT - 35.6 % (low), RDW - 16.6 % (high), Neutrophils - 1.2 10 3/ul (low), Lymphocytes - 0.3 10 3/ul (low), Sodium - 135 mmol/l (low), Protein, Total - 5.9 g/dl (low) and Albumin - 3.4 g/dl (low). Imaging: No new diagnostic imaging was performed since the last weekly treatment visit. All radiation therapy related imaging (including but not limited to CBCT generated images) was reviewed. Appropriate changes, if any, were made to assure accurate target localization. Impression/Plan: Tolerating treatment well with expected side effects. Continue treatment as planned. Continue magic mouth wash. CPT: 07359 Signed by: Dr. Rohith Welch>07/06/2019 10:22:54 AM <<Signature on File>>
== END 2019-07-09 23:59 | disposition home or self-care (01) ==
LOC: ONCMED 05:42
PROVIDERS: Nurse Practitioner; Absent Provider Internal Medicine Hematology & Oncology; Family Provider Emergency Medicine Emergency Medical Services; PCP Emergency Medicine Emergency Medical Services; Visit Provider Radiology Radiation Oncology
DX: Z51.0 Encounter for antineoplastic radiation therapy (principal); Z51.11 Encounter for antineoplastic chemotherapy; C15.5 Malignant neoplasm of lower third of esophagus; D70.1 Agranulocytosis secondary to cancer chemotherapy; G62.0 Drug-induced polyneuropathy; T45.1X5A Adverse effect of antineoplastic and immunosuppressive drugs, initial encounter; I48.91 Unspecified atrial fibrillation; R07.81 Pleurodynia; F17.210 Nicotine dependence, cigarettes, uncomplicated; J90 Pleural effusion, not elsewhere classified; Z79.01 Long term (current) use of anticoagulants; Z79.899 Other long term (current) drug therapy
CPT/HCPCS: 36591; 77336; 77386; 77412; 80053; 85025; 96367; 96372; 96401; 96413; 96417; 99214; J1100; J1200; J1442; J2469; J3490; J7030; J7050; J9045; J9267

== ENCOUNTER 2019-07-20 05:34 | Outpatient (RCR) | payer OTHER, SELFPAY ==
[2019-07-11 08:50] LABS: Basophils % 0.5 %; Eosinophils # 0.1 10^3/uL (0.0-0.8); Eosinophils % 1.4 %; Hematocrit 37.6 % (42.0-52.0); Hemoglobin 12.6 g/dL (11.7-16.6); Lymphocytes # 0.3 10^3/uL (0.8-4.8); Lymphocytes % 4.4 %; Mean Corpuscular HGB Conc 33.5 g/dL (30.0-36.0); Mean Corpuscular Hemoglobin 30.6 pg (28.0-34.0); Mean Corpuscular Volume 91.3 fL (80-94); Mean Platelet Volume 9.4 fL (7.4-10.4); Monocytes # 0.9 10^3/uL (0.2-0.9); Monocytes % 14.2 %; Neutrophils % 78.9 %; Nucleated Red Blood Cells % 0 %; Platelet Count 156 10^3/cmm (130-400); Red Blood Count 4.12 10^6/uL (4.1-5.3); Red Cell Distribution Width 17.4 % (12.1-15.1); White Blood Count 6.3 10^3/uL (4.0-10.0)
--- NOTE | 2019-07-11 09:59 | ONCRAD TMN_ITS ---
Radiation Oncology Weekly Treatment Management Patient: Richard Martin MR#: [id number] : 1955 Age: 64 Sex: Male Dictated by: Dr. Rohith Welch Date of Service: 07/11/2019 Referring Physician(s) : Srinivas Hatch M.D. Primary Diagnosis: T45.1X5A - Adverse effect of antineoplastic and immunosuppressive drugs, initial encounter, Diagnosed 12/21/2018 (Active) D70.1 - Agranulocytosis secondary to cancer chemotherapy, Diagnosed 12/21/2018 (Active) C15.5 - Malignant neoplasm of lower third of esophagus, Diagnosed 09/28/2018 (Active) Radiotherapy to date: Course: Esophagus 2019, Treatment Site: [id number], Ref. ID: [id number], Energy: 15X/6X, Dose/Fx (cGy): 180, #Fx: 25 / 25, Dose Correction (cGy): 0, Total Dose (cGy): 4,500, Start Date: 06/07/2019, End Date: 07/11/2019, Elapsed Days: 34 Current Complaints/Interval History: Constitutional Complains of moderate fatigue. Denies lack of appetite, fever and night sweats. ENMT Complains of dysphagia off and on. Respiratory Complains of dyspnea associated with normal activity. Denies cough and hiccoughs. Gastrointestinal Complains of heartburn / dyspepsia and also has lots of belching. Denies nausea and vomiting. Current Medications: AmLODIPine Besylate, apixaban, ativan, cARBOplatin, dexamethasone, dexamethasone Sodium Phosphate, diphenhydrAMINE HCl, famotidine in NaCl, levoFLOXacin, lisinopril, lORazepam, neupogen, pACLitaxel, palonosetron HCl, prochlorperazine Maleate, prochlorperazine Maleate, sildenafil Citrate, vitamin D. Allergies: No Known Allergies Vital Signs: Performed on 07/11/2019 8:50 AM BMI - 26.067 kg/m2 (high), Height - 72.00 in, Weight - 192.2 lbs, Temperature - 97.8 f, Pulse - 71, Respiration - 18, O2 Sat - 97 %, Pain - 3 and BP - 115/ 73 mm(hg). Physical Exam: Appears stable, no skin erythema or desquamation. Performance Status: 1 - No physically strenuous activity, but ambulatory and able to carry out light or sedentary work (e.g. office work, light house work). (ECOG) Lab: None pending in Radiation Oncology. Imaging: No new diagnostic imaging was performed since the last weekly treatment visit. All radiation therapy related imaging (including but not limited to CBCT generated images) was reviewed. Appropriate changes, if any, were made to assure accurate target localization. Impression/Plan: Tolerating treatment well with expected side effects. Continue treatment as planned. Continue magic mouth wash CPT: 39998 Signed by: Dr. Rohith Welch>07/11/2019 9:57:49 AM <<Signature on File>>
[2019-07-13] MEDS: sodium chloride 0.9% 250 ML 75 ML IV (09:04)
[2019-07-19 08:39] LABS: Basophils % 0.4 %; Eosinophils # 0.1 10^3/uL (0.0-0.8); Eosinophils % 4.9 %; Hematocrit 34.1 % (42.0-52.0); Hemoglobin 11.2 g/dL (11.7-16.6); Lymphocytes # 0.1 10^3/uL (0.8-4.8); Lymphocytes % 4.9 %; Mean Corpuscular HGB Conc 32.8 g/dL (30.0-36.0); Mean Corpuscular Hemoglobin 29.7 pg (28.0-34.0); Mean Corpuscular Volume 90.5 fL (80-94); Mean Platelet Volume 9.8 fL (7.4-10.4); Monocytes # 0.1 10^3/uL (0.2-0.9); Monocytes % 3.6 %; Neutrophils # 1.9 10^3/uL (1.8-7.7); Neutrophils % 85.3 %; Nucleated Red Blood Cells % 0 %; Platelet Count 156 10^3/cmm (130-400); Red Blood Count 3.77 10^6/uL (4.1-5.3); Red Cell Distribution Width 17.2 % (12.1-15.1); White Blood Count 2.2 10^3/uL (4.0-10.0)
[2019-07-19 08:59] LABS: Alanine Aminotransferase 17 U/L (0-41); Albumin Level 3.3 g/dL (3.5-5.2); Alkaline Phosphatase 67 IU/L (40-130); Anion Gap 13.9 (5-19); Aspartate Amino Transferase 22 U/L (0-40); Blood Urea Nitrogen 19 mg/dL (8-23); Calcium 9.5 mg/dL (8.5-10.5); Carbon Dioxide 25 mmol/L (22-29); Chloride 102 mmol/L (98-107); Globulin 2.1 g/dL (1.3-4.6); Glucose 147 mg/dL (65-115); Osmolality Calculated 283 mOsm/kg (285-295); Potassium 3.9 mmol/L (3.5-5.1); Sodium 137 mmol/L (136-145); Total Bilirubin 0.9 mg/dL (0.15-1.2); Total Protein 5.4 g/dL (6.6-8.7)
--- NOTE | 2019-07-20 10:34 | ONC FU_ITS ---
Dr. Hatch follow up note Patient: Richard Martin < Unit #: [id number]: 1955 Dicatated By: Srinivas Hatch M.D.Date of Visit:Jul 20, 2019 Onc Med Follow-up/Prog Note History of Present Illness: Mr. Ramos is a 64-year-old gentleman with history of epigastric pain. Initially it was thought to be due to cardiac, but further evaluation led to GI workup with an EGD/colonoscopy done on 09/28/2018. The EGD exam showed severe inflammation noted in the distal esophagus, biopsies were obtained which confirmed adenocarcinoma.With normal expression of MMR/MSI, HER-2/evgeny negative, PDL 1 negative Stomach and duodenal exam was normal whereas colonoscopy showed 5 mm sessile polyp in hepatic flexure and in descending colon and in the rectum, there were removed ,came back benign. Patient denied any dysphagia, denies any weight loss, denies any hemoptysis or hematemesis, denies any jaundice, denies any shortness of breath. History of atrial fibrillation, on amlodipine and Eliquis He denied any bony pain or other pain, except chronic left upper quadrant abdominal pain which is there off and on for the last 10-12 years, when, as per patient he underwent pancreatic surgery for elevated white blood counts. About year ago patient underwent 'spots' removal from left kidney at [facility] in [place], no further treatment was offered but active surveillance and scheduled for CT scan of abdomen on 09/24/[address] [place] PET scan done on 10/23/2018 showed hypermetabolic primary esophageal carcinoma. Malignant upper abdominal lymphadenopathy, suspicious mediastinal lymphadenopathy subcentimeter right lower lobe nodule is too small to characterize. Started on FLOT regimen on on 12/23/2018. CT PET scan done after 3 cycles of chemotherapy on 01/22/2019 showed interval improvement in the distal esophageal carcinoma Resolution of upper abdominal and mediastinal lymphadenopathy New small right pleural effusion Patient was referred to GI surgical oncology at [facility], was evaluated by on 02/14/2019 as per discussion with him that discuss about patient in the tumor board and concluded that patient is not a candidate for esophagectomy because of extent of disease and recommended follow-up CT PET scan and continue with palliative chemotherapy. Follow-up CT PET scan after 7 cycles of FLOT regimen done on 04/30/2019 showed excellent response, no evidence of recurrent or residual malignancy. Abnormal uptake in the distal esophagus seen on prior study has normalized on the current, indicating complete response to therapy At that point, Mr Martin decided not to continue with systemic chemotherapy because of related side effects and toxicity. As he has high risk for local recurrence the role of consolidation therapy with combined chemoradiation was discussed. Mr Martin was referred to radiation oncology for evaluation and radiation oncology concurred with the plan and eventually Mr Martin elected to started on combined chemoradiation with weekly carboplatin/Taxol. He began treatment on 06/07/2019.and completed on 07/14/2019 Came for follow-up, complaining of indigestion and Magic mouthwash is not helping much. Patient takes V8 every morning and still smoke, No fever or chills, no nausea or vomiting, no hemoptysis or hematemesis no diarrhea or constipation, no jaundice, no dysphagia. Medications: amLODIPine Besylate 1 Tablet (of 10 mg) Oral daily, Apixaban 1 Tablet (of 5 mg) Oral b.i.d., Ativan 0.5 - 1 Tablet (of 1 mg) Oral t.i.d., HYDROcodone-Acetaminophen 1 - 2 Tablet (of 5-325 mg) Oral daily PRN, Lisinopril 1 Tablet (of 40 mg) Oral b.i.d., Prochlorperazine Maleate 1 Tablet (of 10 mg) Oral q 4 hours, Sildenafil Citrate 1 Tablet (of 100 mg) Oral PRN, Vitamin D 1 Tablet Oral daily Allergies: No Known Allergies. Review of Systems: Constitutional - Appetite is good and weight is stable. No fever, chills, hot flashes, or night sweats. Energy level is fair, ENMT - Positive for sinus congestion/drainage. No mouth sores. No sore throat. No difficulty swallowing, Hematologic/Lymphatic - No abnormal bruising or bleeding, Respiratory - Positive for shortness of breath and cough. No pleuritic pain or hemoptysis, Cardiovascular - No angina pain. Pt reports occasional palpitations, Gastrointestinal - Positive for occasional nausea. No vomiting. No heartburn or acid reflux. Positive for diarrhea, no constipation. No blood in the stool or black stools, Genitourinary (M) - No dysuria or hematuria. No urinary frequency. No urgency or incontinence, Musculoskeletal - Pt reports bone pain, Neurologic - No headache or dizziness. No numbness/paresthesias or other focal neurologic symptoms, Psychiatric - No anxiety or depression. No insomnia. Vital Signs: Performed on Jul 20, 2019 08:22 Height - 72.00 in Weight - 190.4 lbs (LOW) BSA - 2.09 sq.m BMI - 25.82 Temperature - 97.2 F (LOW) Pulse - 118 /min (HIGH) Respiration - 17 /min BP - 117/81 mm(hg) O2 Sat - 94 % (LOW) Pain - 0 Performance Status: 1 - No physically strenuous activity, but ambulatory and able to carry out light or sedentary work (e.g. office work, light house work). (ECOG) Physical Examination: ENMT - No oral exudates, ulcers, masses, thrush or mucositis. Oropharynx clear. Tongue normal, Respiratory - Lungs are clear to auscultation without rhonchi or wheezing, Cardiovascular - Regular rate and rhythm of heart, Abdomen - Non-tender, non-distended, Good bowel sounds. No guarding or rebound tenderness. No pulsatile masses, Extremities - no edema. Lab/Imaging: Test performed on Jul 13, 2019 08:04 Creatinine 0.8 mg/dL Cr Clearance (Est) 117.43 mL/min Test performed on Jul 04, 2019 09:01 Sodium 135 mmol/L Potassium 4.4 mmol/L Chloride 101 mmol/L CO2 24 mmol/L Anion Gap 14.4 BUN 16 mg/dL eGFR 97.3 mL/min Glucose 110 mg/dL Calcium 9.5 mg/dL Protein, Total 5.9 g/dL Albumin 3.4 g/dL Globulin 2.5 g/dL Bilirubin, Total 0.5 mg/dL ALT (SGPT) 14 U/L AST (SGOT) 19 U/L Alkaline Phosphatase 66 IU/L WBC 2.1 10 3/uL RBC 4.03 10 6/uL HGB 11.7 g/dL HCT 35.6 % MCV 88.3 fL MCH 29.0 pg MCHC 32.9 g/dL RDW 16.6 % Platelet Count 162 10 3/cmm MPV 8.9 fL Neutrophils 1.2 10 3/uL Lymphocytes 0.3 10 3/uL Monocytes 0.5 10 3/uL Eosinophils 0.0 10 3/uL Basophils 0.0 10 3/uL Neutrophil % 56.5 % Lymphocyte % 16.6 % Monocyte % 22.9 % Eosinophil % 2.0 % Basophils % 1.5 % Impression: 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 pylori CT PET scan done on 10/23/2018 showed hypermetabolic activity in the distal one third of esophagus and the mass measuring 3.4 x 4.5 cm with SUV of 7.8. Metastatic adenopathy is present in the gastrohepatic ligament, peripancreatic nodes, and retroperitoneal lymph node in the right and left periaortic distributions. The index node in the gastrohepatic ligament measures 1.7 cm with FDG 3.1. In the mediastinum, there are multiple suspicious nodes in the right paratracheal and left paraesophageal territories. These have a high likelihood of malignancy Clinical stage T2-3, , N2,, MX HER-2/evgeny negative, PDL 1 negative, normal expression of MMR/MSI History of pancreatic surgery about 10-12 years ago for elevated white blood count now with off and on left upper quadrant pain/discomfort History of spot removal from his left kidney about year ago in [facility], now being observed with active surveillance. History of cholecystectomy Colonoscopy done on 09/28/2018 showed normal exam except benign sessile polyps removal from hepatic flexure, descending colon and rectum and also showed internal hemorrhoids. 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 Molecular studies negative for HER-2/evgeny status, and PDL 1. And normal expression of MMR/MSI. recommended treatment with FLOT regimen which will be given every 2 weeks ???[address] scan to assedess disease response. recommended adjusting his 5-FU dose by 15% for the first treatment, if tolerated then increase to the 100% as per protocol. Mr. Martin began his first cycle of treatment on 12/13/2018. He did have chemotherapy-induced neutropenia and was supported with Neupogen. His counts are recovered well. now on neulasta CT PET scan done after 3 cycles of chemotherapy with FLOT regimen showed good response interval improvement in distal esophageal carcinoma Resolution of upper abdominal and mediastinal lymphadenopathy New, small right pleural effusion. CT PET scan done after 7 cycles of FLOT regimen showed excellent response. No evidence of recurrent or residual malignancy. Abnormal uptake seen in distal esophageal on prior study has normalized. Patient decided to discontinue systemic chemotherapy on 04/25/2019 because of related side effect and toxicity, knowing the risk versus benefits with his decision. At that time role of consolidation therapy with combined chemoradiation therapy with weekly carboplatin and Taxol was discussed. Patient was referred to radiation oncology and they concur with the plan patient was started on combined chemoradiation with weekly carboplatin Taxol on 06/07/2019, completed on 07/14/2019 Plan: [place] with patient regarding his labs white blood count 2.2 hemoglobin 11.2 crit 34.1 platelets 156,000 ANC 1900 CMP within normal limit except glucose 147 Clinically, patient is doing well, now recovering from combined chemoradiation with weekly chiropractic/Taxol. His follow-up CBC shows moderate leukopenia/mild neutropenia and mild anemia. Otherwise overall feeling better, will continue to monitor and in one month with CBC CMP and for port flushed. And we will discuss about further treatment versus observation plan. Signed By: Srinivas Hatch M.D. <<Signature on File>>
== END 2019-08-09 23:59 | disposition home or self-care (01) ==
LOC: ONCMED 05:34
PROVIDERS: Nurse Practitioner; Absent Provider Internal Medicine Hematology & Oncology; Family Provider Emergency Medicine Emergency Medical Services; PCP Emergency Medicine Emergency Medical Services; Referring Provider Radiology Radiation Oncology; Visit Provider Internal Medicine Hematology & Oncology
DX: Z51.0 Encounter for antineoplastic radiation therapy (principal); Z51.11 Encounter for antineoplastic chemotherapy; C15.5 Malignant neoplasm of lower third of esophagus; I48.91 Unspecified atrial fibrillation; F17.210 Nicotine dependence, cigarettes, uncomplicated; Z79.01 Long term (current) use of anticoagulants; Z79.899 Other long term (current) drug therapy; Z79.891 Long term (current) use of opiate analgesic
CPT/HCPCS: 36591; 77300; 77336; 77338; 77386; 80053; 85025; 96367; 96413; 96417; G0463; J1100; J1200; J2469; J3490; J7030; J7050; J9045; J9267

== ENCOUNTER 2019-09-01 10:01 | Outpatient (RCR) | payer OTHER, SELFPAY ==
[2019-08-19 08:50] LABS: Basophils % 0.7 %; Eosinophils # 0.3 10^3/uL (0.0-0.8); Eosinophils % 5.2 %; Hematocrit 38.5 % (42.0-52.0); Hemoglobin 12.8 g/dL (11.7-16.6); Lymphocytes # 1.6 10^3/uL (0.8-4.8); Mean Corpuscular HGB Conc 33.2 g/dL (30.0-36.0); Mean Corpuscular Hemoglobin 31.2 pg (28.0-34.0); Mean Corpuscular Volume 93.9 fL (80-94); Mean Platelet Volume 8.7 fL (7.4-10.4); Monocytes # 0.5 10^3/uL (0.2-0.9); Monocytes % 8.9 %; Neutrophils # 3.2 10^3/uL (1.8-7.7); Neutrophils % 55.8 %; Nucleated Red Blood Cells % 0 %; Platelet Count 347 10^3/cmm (130-400); Red Cell Distribution Width 16.4 % (12.1-15.1); White Blood Count 5.6 10^3/uL (4.0-10.0)
[2019-08-19 08:59] LABS: Alanine Aminotransferase 14 U/L (0-41); Albumin Level 3.9 g/dL (3.5-5.2); Alkaline Phosphatase 101 IU/L (40-130); Anion Gap 15.2 (5-19); Aspartate Amino Transferase 21 U/L (0-40); Blood Urea Nitrogen 11 mg/dL (8-23); Calcium 9.8 mg/dL (8.5-10.5); Carbon Dioxide 24 mmol/L (22-29); Chloride 102 mmol/L (98-107); Globulin 2.5 g/dL (1.3-4.6); Glomerular Filtration Rate 75.2 mL/min (90-130); Glucose 136 mg/dL (65-115); Osmolality Calculated 282 mOsm/kg (285-295); Potassium 4.2 mmol/L (3.5-5.1); Sodium 137 mmol/L (136-145); Total Bilirubin 0.5 mg/dL (0.15-1.2); Total Protein 6.4 g/dL (6.6-8.7)
--- NOTE | 2019-08-25 | CT_ITS ---
WS: [id number] CT CHEST AND ABDOMEN TECHNIQUE: Contrast-enhanced CT of the chest and abdomen with coronal and sagittal reformatted images . CLINICAL INFORMATION: ESOPHAGEAL CANCER COMPARISON: Multiple prior studies including PET CT April 30, 2019 January 22, [address] Aug ust [address] chest abdomen pelvis October 27, 2016 DLP: 1703.[address] scans at [facility] use at least one of these dose optimization techniques: automat ed exposure control; mA and/or kV adjustment per patient size (includes targeted exams where dose is matched to clinical indication); or iterative reconstruction. CT CHEST: Moderate chronic centrilobular emphysematous change. Several stable noncalcified pulmonary nodules th e largest measuring 5 mm and right lower lobe appears stable. Stable noncalcified pulmonary nodule right upper lobe measuring 3 mm.Tiny noncalcified subpleural nod ule in the right middle lobe measuring 3 mm. Fibrosis in the lung apices. Small right pleural effusion. Subsegmental atelectasis right lower lobe.Normal caliber thoracic aorta . Proximal main pulmonary arteries are normal. No mediastinal or hilar lymphadenopathy. CT ABDOMEN: Diffuse thickening of the distal esophagus consistent with patient's known esophageal carcinoma. Diff use thickening at the GE junction and adjacent gastric fundus. Fundal mass like thickening measuring 4.1 x 2.8 cm. This appears progressed from the prior examinations and suspicious for progression/recu rrence. Normal hepatic parenchymal enhancement. Cholecystectomy clips. Adrenal glands are normal. Normal richard l parenchymal enhancement. Left renal cortical atrophy. Small bilateral renal cysts. Fatty atrophy of the pancreas. CT/CT chest abdomen w con* IMPRESSION: 1. Diffuse thickening of the thoracic esophagus more prominent at the GE junct ion with soft tissue mass extending into gastric fundus measuring 4.1 x 2.7 cm suspicious for progression/recurrence. This appears new from previous. Recommen d further evaluation with endoscopy. 2. Small right pleural effusion with subsegmental atelectasis right lung base. 3. Multiple noncalcified pulmonary nodules the largest measuring 5 mm in the r ight lung base appears stable. 4. No lymphadenopathy in the chest or abdomen. 5. Prior cholecystectomy.
[2019-08-25] MEDS: iohexol 300 mg/mL 50 mL Btl PO (10:35)
[2019-08-25] MEDS: iohexol 300 mg/mL 100 mL Btl IV (10:35)
--- NOTE | 2019-09-01 13:22 | ONCRAD EPV_ITS ---
Radiation Oncology Established Patient Visit Patient: Frankie MR#: [id number] : 1955> Age: 64> Sex: Male> Dictated by: Dr. Dave Espinosa Date of Service: 09/01/2019 Referring Physician(s) : Srinivas Hatch M.D. Diagnosis: T45.1X5A - Adverse effect of antineoplastic and immunosuppressive drugs, initial encounter, Diagnosed 12/21/2018 (Active) D70.1 - Agranulocytosis secondary to cancer chemotherapy, Diagnosed 12/21/2018 (Active) C15.5 - Malignant neoplasm of lower third of esophagus, Diagnosed 09/28/2018 (Active) Radiotherapy to Date: Course: 2019, Treatment Site: [id number], Ref. ID: [id number], Energy: 15X/6X, Dose/Fx (cGy): 180, #Fx: 25 / 25, Dose Correction (cGy): 0, Total Dose (cGy): 4,500, Start Date: 06/07/2019, End Date: 07/11/2019, Elapsed Days: 34 Esophagus 2019, Treatment Site: [email or web address], Ref. ID: [id number], Energy: 15X/6X, Dose/Fx (cGy): 180, #Fx: 3 / 3, Dose Correction (cGy): 0, Total Dose (cGy): 540, Start Date: 07/12/2019, End Date: 07/14/2019, Elapsed Days: 2 Chief Complaint / History of Present Illness: Currently he feels well with no interval changes. He has a bit of pain on swallowing present intermittently unchanged. He tolerates eating all foods this is unchanged. He has stable weight and energy level. He has no fevers chills nausea or vomiting. He has had chronic slight left upper quadrant pain for many years unchanged. He has no epigastric or other abdominal pain. CT scan of the chest and abdomen from August 25, 2019 was reviewed it revealed diffuse thickening of the thoracic esophagus there was now a worrisome prominent mass in the GE junction extending into the proximal stomach measuring 4.1 x 2.7 cm not previously appreciated on his last PET CT scan obtained in April 2019. There was no evidence for metastatic disease in the retroperitoneal or mediastinal lymph node regions. No evidence for liver metastases. Stable indeterminate pulmonary nodules. Current Medications: AmLODIPine Besylate, apixaban, ativan, cARBOplatin, dexamethasone, dexamethasone Sodium Phosphate, diphenhydrAMINE HCl, famotidine in NaCl, hYDROcodone-Acetaminophen, levoFLOXacin, lisinopril, lORazepam, neupogen, pACLitaxel, palonosetron HCl, prochlorperazine Maleate, prochlorperazine Maleate, sildenafil Citrate, vitamin D. Allergies: No Known Allergies Current Complaints / Review of Systems: Constitutional - Complains of mild fatigue. Denies lack of appetite, fever, night sweats and change in weight. Eyes - Denies blurred vision. ENMT - Complains of dysphagia and altered taste but is improving. Denies ear pain, mouth dryness and stomatitis. Neck - Denies neck pain. Integumentary - Complains of rash on the right side of the groin. Cardiovascular - Denies arrhythmias, chest pain and edema. Respiratory - Complains of a mild cough which is productive. Complains of dyspnea associated with normal activity. Denies hemoptysis and wheezing. Gastrointestinal - Complains of abdominal pain that is intermittent located in the left upper quadrant. Complains of heartburn / dyspepsia occasionally. Denies constipation, diarrhea, melena / GI bleeding, nausea and vomiting. Genitourinary (M) - Complains of nocturia gets up about 1 to 2 times per night. Denies dysuria, frequency and urgency. Musculoskeletal - Complains of joint pain in the upper extremity from lifting weights. Denies bone pain and muscle weakness. Neurologic - Complains of intermittent dizziness. Complains of headaches occasionally. Denies abnormal gait. Endocrine - Denies diabetes and thyroid disease. Hematologic/Lymphatic - Denies tender or enlarged lymph nodes.. Vital Signs: Performed on 09/01/2019 10:16 AM BMI - 25.877 kg/m2 (high), Height - 72.00 in, Weight - 190.8 lbs, Temperature - 98.8 f, Pulse - 85, Respiration - 20, O2 Sat - 98 %, Pain - 1 and BP - 131/ 86 mm(hg). Physical Exam: General: Alert and oriented x 3. No acute distress. HEENT: Normocephalic, atraumatic. Extraocular Movements Intact: Pupils Equal, Round, Reactive to Light and Accommodation: Sclerae anicteric. Oral cavity is clear without lesions, masses or ulcers. NECK: Supple without supraclavicular or jugular lymphadenopathy. LUNGS: Clear to auscultation bilaterally without rales, rhonchi or wheeze. HEART: Regular rate and rhythm, normal S1 and S2 without murmur, gallop or rub. MUSCULOSKELETAL: No tenderness or percussion pain over the axial skeleton, scapulae or pelvis. ABDOMEN: Soft, nontender, nondistended without masses or organomegaly. Bowell sounds are present. EXTREMITIES: No peripheral edema is identified. Limited motor and sensory examination are grossly intact and symmetric bilaterally. NEUROLOGIC: Cranial nerves II ???XII are grossly intact. Normal sensation, strength 5/5 in all extremities, normal gait, no ataxia. Performance Status: Lab: None pending. Test performed on 08/19/2019 8:16 AM HCT - 38.5 % (low), RDW - 16.4 % (high), eGFR - 75.2 ml/min (low), Glucose - 136 mg/dl (high) and Protein, Total - 6.4 g/dl (low). Pathology: Primary, t45.1x5a - adverse effect of antineoplastic and immunosuppressive drugs, initial encounter, Diagnosed 12/21/2018 (active), Primary, d70.1 - agranulocytosis secondary to cancer chemotherapy, Diagnosed 12/21/2018 (active) and Primary, c15.5 - malignant neoplasm of lower third of esophagus, Diagnosed 09/28/2018 (active). Imaging: See HPI Impression: In summary my impression is that of primary adenocarcinoma of the GE junction treated in the past with chemotherapy followed by radiation treatment. He has asymptomatic evidence for potential disease progression in the very distal GE junction and proximal stomach. He has no functional changes. And is symptomatically doing well. I outlined the choices that we face at this time to assess him more thoroughly. He could have an endoscopy now to verify the presence of recurrent disease. Alternatively a PET CT scan could be obtained at this time. He is reluctant to do anything actively he feels he is not interested in pursuing additional treatment as he is asymptomatic. A third alternative to endoscopy and PET/CT at this time is to follow him in 3 months with a seat repeat CT scan of the chest and abdomen. This is his preference as he is otherwise feeling well. I outlined the need for urgent or immediate follow-up in the event he develops any symptomatic changes including changes in his swallowing or tarry stools which would reflect occult bleeding from his presumed disease recurrence. Signed by: 09/01/2019 1:21:26 PM <<Signature on File>> Time spent with patient: CPT Code: CPT Code:
== END 2019-09-08 23:59 | disposition home or self-care (01) ==
LOC: ONCMED 10:01
PROVIDERS: Internal Medicine Hematology & Oncology; Family Provider Emergency Medicine Emergency Medical Services; PCP Emergency Medicine Emergency Medical Services; Referring Provider Radiology Radiation Oncology; Visit Provider Radiology Radiation Oncology
DX: C15.5 Malignant neoplasm of lower third of esophagus (principal); I48.91 Unspecified atrial fibrillation; J44.9 Chronic obstructive pulmonary disease, unspecified; R13.19 Other dysphagia; I10 Essential (primary) hypertension; F10.21 Alcohol dependence, in remission; H91.90 Unspecified hearing loss, unspecified ear; J90 Pleural effusion, not elsewhere classified; J98.11 Atelectasis
CPT/HCPCS: 36591; 71260; 74160; 80053; 85025; Q9967

== ENCOUNTER 2019-09-26 07:05 | Outpatient (RCR) | payer OTHER, SELFPAY | END 2019-10-09 23:59 | disposition home or self-care (01) | LOC: ONCMED 07:05 | PROVIDERS: PCP Emergency Medicine Emergency Medical Services; Referring Provider Radiology Radiation Oncology; Visit Provider Internal Medicine Hematology & Oncology | DX: Z45.2 Encounter for adjustment and management of vascular access device (principal); C15.5 Malignant neoplasm of lower third of esophagus; D70.1 Agranulocytosis secondary to cancer chemotherapy; T45.1X5A Adverse effect of antineoplastic and immunosuppressive drugs, initial encounter | CPT/HCPCS: 96523 ==

== ENCOUNTER 2019-10-19 08:30 | Emergency (ER) | payer OTHER, SELFPAY ==
[2019-10-19 08:46] VITALS: BP 149/100; PULSE 102; RESP 18; TEMP 36.2; O2SAT 95; BMI 25.0
--- NOTE | 2019-10-19 09:00 | W.ED.SOB ---
HPI - SOB/Dyspnea General: Chief Complaint: Shortness of Breath/Dyspnea Stated Complaint: sob Time Seen by Provider: 10/19/19 08:30 History of Present Illness: HPI Narrative: 64-year-old male comes in complaining shortness of breath the last 2 days. He denies a fever he does get some chest pain occasionally with coughing fits. He states he has a baseline productive cough that has not really changed at all recently. Shortness of breath is worse with exertion but interestingly exertion does not bring on any chest pain. He has recently completed chemo and radiation in July of this year for esophageal cancer he never did have a resection of it. He denies any hemoptysis denies any hematemesis. He has been able to swallow okay with no recent difficulties. He denies any GI or problems denies any hematochezia melena hematemesis coffee-ground emesis nausea vomiting or diarrhea at this time. MD elicited complaint: shortness of breath, chest pain (With coughing fits) and anxiety Pertinent past history: COPD and other (Esophageal CA) Onset (ago): day(s) (2) Context: occurred during exertion Timing: intermittent Severity: moderate Exacerbating factors: lying flat and exertion Relieving factors: rest and upright position Known history of: COPD and other (Esophageal CA) Associated symptoms: Reports chest pain, cough and nausea; Deny diaphoresis, fever(s), hemoptysis, syncope or vomiting Treatment prior to arrival: none Review of Systems Const: Denies: fever(s) or diaphoresis ENMT: Denies: throat pain, ear or mastoid pain, nasal discharge or nasal congestion Card: Reports: chest pain; Denies: syncope Resp: Denies: hemoptysis GI: Reports: nausea; Denies: vomiting : Denies: flank pain, dysuria, urinary frequency or urinary urgency Skin/Breast: Denies: rash or pruritus PFSH ED PFSH: Medical History (Updated 10/19/19 @ 13:24 by Enmanuel Whitt DO) Atrial fibrillation Esophageal cancer Hypertension Renal carcinoma Surgical History (Updated 10/19/19 @ 09:05 by Enmanuel Whitt DO) H/O partial nephrectomy S/P appendectomy S/P cholecystectomy Social History Smoking and tobacco status: current every day smoker Physical Exam Const: COMMON NORMALS: no acute distress GENERAL APPEARANCE: cooperative and comfortable ORIENTATION/CONSCIOUSNESS: Yes awake, Yes oriented to person, Yes oriented to place and Yes oriented to time HENMT: COMMON NORMALS: normocephalic, atraumatic, hearing grossly normal bilaterally, external ears normal, EAC's normal, TM's normal bilaterally, Normal nasal mucous membranes and turbinates present, moist oral mucous membranes and oropharynx normal HEAD & SCALP: normocephalic and atraumatic NOSE: Normal nasal mucous membranes and turbinates present EXTERNAL EAR: Yes external ears normal EXTERNAL AUDITORY CANAL: EAC's normal TYMPANIC MEMBRANE: TM's normal bilaterally Eye: COMMON NORMALS: Equal, round and reactive pupils present, EOMs intact bilaterally, conjunctivae normal and no scleral icterus CONJUNCTIVA: Yes conjunctivae normal PUPIL: Yes Equal, round and reactive pupils present Neck/C-Spine: COMMON NORMALS: full ROM, no lymphadenopathy, supple and no JVD Lymph: LYMPHATIC: no lymphadenopathy noted and no lymphedema noted Resp: COMMON NORMALS: normal respiratory effort, No retractions, No use of accessory muscles and clear to auscultation bilaterally AUSCULTATION: clear to auscultation bilaterally Cardio: COMMON NORMALS: no JVD, regular rate, regular rhythm and No murmurs present (Cardio) RATE: regular rate RHYTHM: regular rhythm GI: COMMON NORMALS: Soft to palpation and No hepatosplenomegaly present AUSCULTATION: Yes normoactive bowel sounds PALPATION: Yes Soft to palpation, No Tenderness to palpation present (GI), No Guarding due to palpation present (GI) and Yes No hepatosplenomegaly present Extremity: COMMON NORMALS: normal to inspection, capillary refill normal, no clubbing, cyanosis or edema, no calf tenderness and no pedal edema Neuro: SENSORIUM/ORIENTATION: Yes oriented to person, Yes oriented to place and Yes oriented to time Skin: COMMON NORMALS: no rashes or lesions noted GENERAL SKIN EXAM: no rashes or lesions noted Course Vital Signs: Vital signs: Vital Signs Temperature 97.1 F L 10/19/19 08:46 Pulse Rate 95 10/19/19 14:03 Respiratory Rate 21 H 10/19/19 14:03 Blood Pressure 147/95 10/19/19 14:03 Pulse Oximetry 95 10/19/19 14:03 MDM - SOB/Dyspnea MDM Narrative: Medical decision making narrative: Patient is a large right pleural effusion presumably from his cancer. Unfortunately because on Eliquis we can get it drained today. I talked to his oncologist. We will go and discharge him home and set him up with Dr. Ortiz he will need bridging off the Eliquis with Lovenox and then look at either having a thoracentesis or even possibly consider placing a [place] drain Dr. Ortiz to consult to review that and make a definitive decision discussed with the patient expresses understanding. Dr. Hatch assess to go ahead and get him referred over to Dr. Ortiz. Lab Data: Labs: Lab Results 10/19/19 10/19/19 10/19/19 Range/Units 09:35 09:35 09:35 WBC 9.5 (4.0-10.0) 10^3/ uL RBC 4.26 (4.1-5.3) 10^6/u L Hgb 13.1 (11.7-16.6) g/dL Hct 39.6 L (42.0-52.0) % MCV 93.0 (80-94) fL MCH 30.8 (28.0-34.0) pg MCHC 33.1 (30.0-36.0) g/dL RDW 13.0 (12.1-15.1) % Plt Count 330 (130-400) 10^3/c mm MPV 8.6 (7.4-10.4) fL Neut % (Auto) 78.6 % Lymph % (Auto) 12.6 % [place] % (Auto) 6.2 % Eos % (Auto) 1.7 % Baso % (Auto) 0.6 % Neut # (Auto) 7.5 (1.8-7.7) 10^3/u L Lymph # (Auto) 1.2 (0.8-4.8) 10^3/u L [place] # (Auto) 0.6 (0.2-0.9) 10^3/u L Eos # (Auto) 0.2 (0.0-0.8) 10^3/u L Baso # (Auto) 0.1 (0.0-0.1) 10^3/u L Nucleated RBC % (a uto) 0 % Nucleated RBCs # 0.0 /100WBC D-Dimer (0-0.59) ug/mIFE U Specimen Type Sample Site ABG pH (7.35-7.45) ABG pCO2 (35-45) mmHg ABG pO2 (80.0-100.0) mmH g ABG HCO3 (22-26) mmol/L ABG O2 Saturation ABG Base Excess (-2.0-2.0) mmol/ L [place] Test A-a O2 Gradient (5-10) mmHg Hematocrit (42-52) % Hgb O2 Saturation (95-100) % Carboxyhemoglobin (0.4-20.1) %THgb Methemoglobin (0.4-1.5) % Total Hemoglobin (14-18) g/dL Ionized Calcium (1.1-1.4) mmol/L O2 Delivery Device FiO2 % Assistant Prosecuting Attorney ID Sodium 131 L (136-145) mmol/L Potassium 4.4 (3.5-5.1) mmol/L Chloride 99 (98-107) mmol/L Carbon Dioxide 23 (22-29) mmol/L Anion Gap 13.4 (5-19) BUN 13 (8-23) mg/dL Creatinine 0.8 (0.7-1.2) mg/dL GFR Calculation 97.3 (90-130) mL/min Glucose 98 (65-115) mg/dL Calculated Osmolal ity 268 L (285-295) mOsm/k g Lactate 0.9 (0.5-2.2) mmol/L Calcium 8.6 (8.5-10.5) mg/dL Total Bilirubin 0.4 (0.15-1.2) mg/dL AST 19 (0-40) U/L ALT 19 (0-41) U/L Alkaline Phosphata se 106 (40-130) IU/L Troponin T Baselin e (0-15) ng/L Troponin T 120 Min [place] (0-15) ng/L Delta Troponin T (0-10) ABS# Total Protein 5.6 L (6.6-8.7) g/dL Albumin 3.4 L (3.5-5.2) g/dL Globulin 2.2 (1.3-4.6) g/dL Lipase 23 (13-60) U/L Urine Color (Yellow) Urine Appearance (CLEAR) Urine pH (5-7) Ur Specific Gravit y (1.005-1.030) Urine Protein (Negative) Urine Glucose (UA) (Normal) Urine Ketones (Negative) Urine Blood (Negative) Urine Nitrate (Negative) Urine Bilirubin (NEGATIVE) Urine Urobilinogen (Negative) mg/dL Ur Leukocyte Marcela ase (Negative) 10/19/19 10/19/19 10/19/19 Range/Units 09:35 09:35 09:48 WBC (4.0-10.0) 10^3/ uL RBC (4.1-5.3) 10^6/u L Hgb (11.7-16.6) g/dL Hct (42.0-52.0) % MCV (80-94) fL MCH (28.0-34.0) pg MCHC (30.0-36.0) g/dL RDW (12.1-15.1) % Plt Count (130-400) 10^3/c mm MPV (7.4-10.4) fL Neut % (Auto) % Lymph % (Auto) % [place] % (Auto) % Eos % (Auto) % Baso % (Auto) % Neut # (Auto) (1.8-7.7) 10^3/u L Lymph # (Auto) (0.8-4.8) 10^3/u L [place] # (Auto) (0.2-0.9) 10^3/u L Eos # (Auto) (0.0-0.8) 10^3/u L Baso # (Auto) (0.0-0.1) 10^3/u L Nucleated RBC % (a uto) % Nucleated RBCs # /100WBC D-Dimer 1.16 H (0-0.59) ug/mIFE U Specimen Type Arterial Sample Site Brachial, right ABG pH 7.45 (7.35-7.45) ABG pCO2 32.0 L (35-45) mmHg ABG pO2 63.2 L (80.0-100.0) mmH g ABG HCO3 22.3 (22-26) mmol/L ABG O2 Saturation 93.6 ABG Base Excess -0.9 (-2.0-2.0) mmol/ L [place] Test Pos A-a O2 Gradient 44.0 H (5-10) mmHg Hematocrit 42.5 (42-52) % Hgb O2 Saturation 92.1 L (95-100) % Carboxyhemoglobin 0.9 (0.4-20.1) %THgb Methemoglobin 0.7 (0.4-1.5) % Total Hemoglobin 13.9 L (14-18) g/dL Ionized Calcium 1.2 (1.1-1.4) mmol/L O2 Delivery Device Room air FiO2 21.0 % Assistant Prosecuting Attorney ID monro Sodium 132.0 (136-145) mmol/L Potassium 4.4 (3.5-5.1) mmol/L Chloride (98-107) mmol/L Carbon Dioxide (22-29) mmol/L Anion Gap (5-19) BUN (8-23) mg/dL Creatinine (0.7-1.2) mg/dL GFR Calculation (90-130) mL/min Glucose 91.0 (65-115) mg/dL Calculated Osmolal ity (285-295) mOsm/k g Lactate (0.5-2.2) mmol/L Calcium (8.5-10.5) mg/dL Total Bilirubin (0.15-1.2) mg/dL AST (0-40) U/L ALT (0-41) U/L Alkaline Phosphata se (40-130) IU/L Troponin T Baselin e 8 (0-15) ng/L Troponin T 120 Min [place] (0-15) ng/L Delta Troponin T (0-10) ABS# Total Protein (6.6-8.7) g/dL Albumin (3.5-5.2) g/dL Globulin (1.3-4.6) g/dL Lipase (13-60) U/L Urine Color (Yellow) Urine Appearance (CLEAR) Urine pH (5-7) Ur Specific Gravit y (1.005-1.030) Urine Protein (Negative) Urine Glucose (UA) (Normal) Urine Ketones (Negative) Urine Blood (Negative) Urine Nitrate (Negative) Urine Bilirubin (NEGATIVE) Urine Urobilinogen (Negative) mg/dL Ur Leukocyte Marcela ase (Negative) 10/19/19 10/19/19 Range/Units 10:11 11:40 WBC (4.0-10.0) 10^3/ uL RBC (4.1-5.3) 10^6/u L Hgb (11.7-16.6) g/dL Hct (42.0-52.0) % MCV (80-94) fL MCH (28.0-34.0) pg MCHC (30.0-36.0) g/dL RDW (12.1-15.1) % Plt Count (130-400) 10^3/c mm MPV (7.4-10.4) fL Neut % (Auto) % Lymph % (Auto) % [place] % (Auto) % Eos % (Auto) % Baso % (Auto) % Neut # (Auto) (1.8-7.7) 10^3/u L Lymph # (Auto) (0.8-4.8) 10^3/u L [place] # (Auto) (0.2-0.9) 10^3/u L Eos # (Auto) (0.0-0.8) 10^3/u L Baso # (Auto) (0.0-0.1) 10^3/u L Nucleated RBC % (a uto) % Nucleated RBCs # /100WBC D-Dimer (0-0.59) ug/mIFE U Specimen Type Sample Site ABG pH (7.35-7.45) ABG pCO2 (35-45) mmHg ABG pO2 (80.0-100.0) mmH g ABG HCO3 (22-26) mmol/L ABG O2 Saturation ABG Base Excess (-2.0-2.0) mmol/ L [place] Test A-a O2 Gradient (5-10) mmHg Hematocrit (42-52) % Hgb O2 Saturation (95-100) % Carboxyhemoglobin (0.4-20.1) %THgb Methemoglobin (0.4-1.5) % Total Hemoglobin (14-18) g/dL Ionized Calcium (1.1-1.4) mmol/L O2 Delivery Device FiO2 % Assistant Prosecuting Attorney ID Sodium (136-145) mmol/L Potassium (3.5-5.1) mmol/L Chloride (98-107) mmol/L Carbon Dioxide (22-29) mmol/L Anion Gap (5-19) BUN (8-23) mg/dL Creatinine (0.7-1.2) mg/dL GFR Calculation (90-130) mL/min Glucose (65-115) mg/dL Calculated Osmolal ity (285-295) mOsm/k g Lactate (0.5-2.2) mmol/L Calcium (8.5-10.5) mg/dL Total Bilirubin (0.15-1.2) mg/dL AST (0-40) U/L ALT (0-41) U/L Alkaline Phosphata se (40-130) IU/L Troponin T Baselin e (0-15) ng/L Troponin T 120 Min [place] 10.76 (0-15) ng/L Delta Troponin T 2.76 (0-10) ABS# Total Protein (6.6-8.7) g/dL Albumin (3.5-5.2) g/dL Globulin (1.3-4.6) g/dL Lipase (13-60) U/L Urine Color Yellow (Yellow) Urine Appearance Clear (CLEAR) Urine pH 5 (5-7) Ur Specific Gravit y 1.015 (1.005-1.030) Urine Protein Neg (Negative) Urine Glucose (UA) Norm (Normal) Urine Ketones Negative (Negative) Urine Blood Neg (Negative) Urine Nitrate Negative (Negative) Urine Bilirubin Neg (NEGATIVE) Urine Urobilinogen Neg (Negative) mg/dL Ur Leukocyte Marcela ase Negative (Negative) Discharge Plan Discharge Patient Disposition: Home, Self-Care Clinical Impression: Esophageal cancer, Pleural effusion Condition: Stable Prescriptions: No Action sildenafil 50 mg Tablet 50 mg PO DAILY PRN (Reason: prn) RF: 0 Vitamin C 500 mg Tablet 500 mg PO DAILY RF: 0 amlodipine 10 mg Tablet 10 mg PO DAILY RF: 0 gabapentin 100 mg Capsule 100 mg PO TID PRN (Reason: Pain) RF: 0 lisinopril 40 mg Tablet 40 mg PO BID RF: 0 fluticasone propionate 50 mcg/actuation [place],Suspension 2 spray INTRANASAL DAILY RF: 0 Aleve 220 mg Capsule 220 mg PO BID PRN (Reason: Pain) RF: 0 Eliquis 5 mg Tablet 5 mg PO BID RF: 0 Referrals: Valeriano Ortiz MD [Physician] - Discharge Diet: Usual diet Discharge Activity: Limit activity as instructed Activity Restrictions/Additional Instructions: This management will call to make a referral to Dr. Ortiz for drainage of the pleural effusion Discharge Date/Time: 10/19/19 14:05 Coding Level of Care Code ED Client Leader for [facility] Fwd Exam Comprehensive
--- NOTE | 2019-10-19 09:33 | XR_ITS ---
WS: [id number] Portable AP upright chest, 10/19/2019 Clinical Data: dyspnea/cough Comparison: Portable chest, 12/27/2018. Findings: There is a moderate right pleural effusion with right basilar atelectasis which is developed. The lef t lung shows moderate atelectasis in the medial aspect but no definite effusion. The upper lobes are clear. The heart isn't maybe slightly enlarged but the right cardiac border is obscured. The aortic a rch and descending aorta show tortuosity. The left Port-A-Cath remains in good position. No pneumotho rax is seen. XR/XR chest 1V portable [id number] IMPRESSION: 1. Moderate right pleural effusion and right basilar atelectasis have developed . 2. Moderate medial left basilar atelectasis.
--- NOTE | 2019-10-19 09:33 | ECG_ITS ---
Measurements Intervals [place] Rate: 95 P: [place]: 0 QRS: 64 QRSD: 90 T: 27 QT: 334 QTc: 421 ATRIAL FIBRILLATION ABNORMAL RHYTHM ECG Compared to ECG 12/27/2018 17:53:25 No significant changes Electronically Signed On 10-19-2019 15:54:49 CDT by Tom Green M.D. [email or web address]
[2019-10-19 09:43] LABS: Basophils # 0.1 10^3/uL (0.0-0.1); Basophils % 0.6 %; Eosinophils # 0.2 10^3/uL (0.0-0.8); Eosinophils % 1.7 %; Hematocrit 39.6 % (42.0-52.0); Hemoglobin 13.1 g/dL (11.7-16.6); Lymphocytes # 1.2 10^3/uL (0.8-4.8); Lymphocytes % 12.6 %; Mean Corpuscular HGB Conc 33.1 g/dL (30.0-36.0); Mean Corpuscular Hemoglobin 30.8 pg (28.0-34.0); Mean Platelet Volume 8.6 fL (7.4-10.4); Monocytes # 0.6 10^3/uL (0.2-0.9); Monocytes % 6.2 %; Neutrophils # 7.5 10^3/uL (1.8-7.7); Neutrophils % 78.6 %; Nucleated Red Blood Cells % 0 %; Platelet Count 330 10^3/cmm (130-400); Red Blood Count 4.26 10^6/uL (4.1-5.3); White Blood Count 9.5 10^3/uL (4.0-10.0)
--- NOTE | 2019-10-19 09:43 | PC.NURSE ---
patients port accessed , blood drawn, patient tolerated well
[2019-10-19 09:55] LABS: Lactate (Lactic Acid level) 0.9 mmol/L (0.5-2.2)
[2019-10-19 09:56] LABS: Alanine Aminotransferase 19 U/L (0-41); Albumin Level 3.4 g/dL (3.5-5.2); Alkaline Phosphatase 106 IU/L (40-130); Anion Gap 13.4 (5-19); Aspartate Amino Transferase 19 U/L (0-40); Blood Urea Nitrogen 13 mg/dL (8-23); Calcium 8.6 mg/dL (8.5-10.5); Carbon Dioxide 23 mmol/L (22-29); Chloride 99 mmol/L (98-107); Globulin 2.2 g/dL (1.3-4.6); Glomerular Filtration Rate 97.3 mL/min (90-130); Glucose 98 mg/dL (65-115); Lipase 23 U/L (13-60); Osmolality Calculated 268 mOsm/kg (285-295); Potassium 4.4 mmol/L (3.5-5.1); Sodium 131 mmol/L (136-145); Total Bilirubin 0.4 mg/dL (0.15-1.2); Total Protein 5.6 g/dL (6.6-8.7)
[2019-10-19 09:57] LABS: Troponin(5th) Baseline 8 ng/L (0-15)
[2019-10-19 10:01] LABS: ABG PH Result 7.45 (7.35-7.45); Arterial Blood Gas Hematocrit 42.5 % (42-52); Base Excess ABG -0.9 mmol/L (-2.0-2.0); Blood Gas Allen Test Pos; Blood Gas Sample Site Brachial, right; Blood Gas Sample Type Arterial; Carboxyhemoglobin 0.9 %THgb (0.4-20.1); HCO3 ABG 22.3 mmol/L (22-26); HGB O2 Sat 92.1 % (95-100); Ionized Calcium Level - ABG 1.2 mmol/L (1.1-1.4); Methemoglobin 0.7 % (0.4-1.5); Oxygen Device ROOM AIR; Oxygen Saturation ABG 93.6; PO2 ABG 63.2 mmHg (80.0-100.0); Potassium Level - ABG 4.4 mmol/L (3.5-5.0); Total Hemoglobin 13.9 g/dL (14-18)
[2019-10-19 10:17] LABS: D Dimer 1.16 ug/mIFEU (0-0.59)
--- NOTE | 2019-10-19 11:11 | CT_ITS ---
WS: [id number] CTA scan of the chest with IV contrast. Additional two-dimensional coronal and sagittal reconstructio n and MIP images was performed. 10/19/2019 Clinical Data: dyspnea Comparison: CT chest abdomen, 08/25/2019, CTA chest, 12/27/2018. DLP: 677.[address] scans at [facility] use at least one of these dose optimization techniques: automat ed exposure control; mA and/or kV adjustment per patient size (includes targeted exams where dose is matched to clinical indication); or iterative reconstruction. Findings: The central pulmonary arteries and peripheral pulmonary arteries fill normally with no evidence of in traluminal filling defects. No pulmonary embolic disease is noted. There is a huge right pleural effusion and a moderate left pleural effusion. Bilateral lower lobe ate lectasis seen. No nodules or large masses are noted. There is no pericardial effusion. The thoracic a emilie is unremarkable. Again there is thickening of the wall of the lower esophagus which has been pre sent. The trachea bifurcates normally into the bronchi. The thyroid gland shows normal enhancement. N o axillary adenopathy is seen. There are small mediastinal lymph nodes present. Bony thorax is intact and there are no metastatic lesions. The upper abdomen shows a cholecystectomy. CT/CT angio chest PE protcl [id number] Impression: 1. Negative for pulmonary embolic disease. 2. Large right pleural effusion with smaller left pleural effusion and moderate bilateral atelectasis. 3. Thickening of distal esophageal wall unchanged.
[2019-10-19] MEDS: iohexol 350 mg/mL 100 mL Btl IV (11:37)
[2019-10-19 12:03] LABS: Troponin 5 2HR 10.76 ng/L (0-15); Troponin 5 2HR Delta 2.76 ABS# (0-10)
[2019-10-19 12:58] LABS: Add Urine Microscopic? NO
[2019-10-19 13:04] LABS: Bilirubin Urine Neg (NEGATIVE); Blood Urine Neg (Negative); Glucose Urine UA Norm (Normal); Ketones Urine Negative (Negative); Leukocyte Esterase Urine Negative (Negative); Nitrate Urine Negative (Negative); Protein Urine Neg (Negative); Specific Gravity, Urine 1.015 (1.005-1.030); Urine Appearance Clear (CLEAR); Urine Color Yellow (Yellow); Urobilinogen Urine Neg (Negative); pH Urine 5 (5-7)
[2019-10-19 13:59] VITALS: O2SAT 90; O2SAT 95
[2019-10-19 14:03] VITALS: BP 147/95; PULSE 95; RESP 21; O2SAT 95
--- NOTE | 2019-10-19 15:33 | ECG_ITS ---
Measurements Intervals [place] Rate: 94 P: [place]: 0 QRS: 25 QRSD: 97 T: 40 QT: 350 QTc: 438 ATRIAL FIBRILLATION LOW QRS VOLTAGE IN EXTREMITY LEADS [QRS DEFLECTION < 0.5 mV IN LIMB LEADS] ABNORMAL RHYTHM ECG Compared to ECG 12/27/2018 17:53:25 No significant changes Electronically Signed On 10-19-2019 15:56:57 CDT by Tom Green M.D. [email or web address]
--- NOTE | 2019-10-20 14:01 | DCPLANNER ---
it operations manager had message to schedule a follow up appointment for patient with Dr. Ortiz at [facility]. it operations manager called [facility], spoke with Wendy, gave clinic patients information. it operations manager was told that patients information would be printed and reviewed. Clinic will call patient with appointment information.
--- NOTE | 2019-10-21 11:40 | DCPLANNER ---
Patient has a follow up appointment scheduled for , October 27, 2019 at 3:[address] Ortiz at [facility]. Clinic will call patient with appointment information.
--- NOTE | 2019-11-08 14:30 | DCPLANNER ---
Patient did attend appointment scheduled for 10.27.19 with at [facility].
== END 2019-10-19 14:05 | disposition home or self-care (01) ==
PROVIDERS: Emergency Provider Family Medicine; PCP Emergency Medicine Emergency Medical Services
DX: J90 Pleural effusion, not elsewhere classified (principal); C15.9 Malignant neoplasm of esophagus, unspecified; Z79.01 Long term (current) use of anticoagulants; I48.91 Unspecified atrial fibrillation; I10 Essential (primary) hypertension; F17.210 Nicotine dependence, cigarettes, uncomplicated
CPT/HCPCS: 12345; 36415; 36600; 71045; 71275; 80051; 80053; 81003; 82810; 83605; 83690; 83986; 84484; 85025; 85378; 93005; 99283; 99284; Q9967

== ENCOUNTER 2019-10-28 06:49 | Outpatient (RCR) | payer OTHER, SELFPAY ==
[2019-10-28 08:54] LABS: Basophils % 0.5 %; Eosinophils # 0.3 10^3/uL (0.0-0.8); Eosinophils % 3.4 %; Hematocrit 42.1 % (42.0-52.0); Hemoglobin 14.2 g/dL (11.7-16.6); Lymphocytes # 1.3 10^3/uL (0.8-4.8); Lymphocytes % 16.7 %; Mean Corpuscular HGB Conc 33.7 g/dL (30.0-36.0); Mean Corpuscular Hemoglobin 31.1 pg (28.0-34.0); Mean Corpuscular Volume 92.3 fL (80-94); Mean Platelet Volume 8.8 fL (7.4-10.4); Monocytes # 0.5 10^3/uL (0.2-0.9); Monocytes % 6.2 %; Neutrophils # 5.6 10^3/uL (1.8-7.7); Neutrophils % 72.9 %; Nucleated Red Blood Cells % 0 %; Platelet Count 371 10^3/cmm (130-400); Red Blood Count 4.56 10^6/uL (4.1-5.3); Red Cell Distribution Width 12.6 % (12.1-15.1); White Blood Count 7.7 10^3/uL (4.0-10.0)
[2019-10-28 09:06] LABS: Alanine Aminotransferase 21 U/L (0-41); Albumin Level 3.7 g/dL (3.5-5.2); Alkaline Phosphatase 114 IU/L (40-130); Anion Gap 16.2 (5-19); Aspartate Amino Transferase 24 U/L (0-40); Blood Urea Nitrogen 11 mg/dL (8-23); Calcium 8.8 mg/dL (8.5-10.5); Carbon Dioxide 24 mmol/L (22-29); Chloride 93 mmol/L (98-107); Globulin 2.2 g/dL (1.3-4.6); Glomerular Filtration Rate 97.3 mL/min (90-130); Glucose 165 mg/dL (65-115); Osmolality Calculated 268 mOsm/kg (285-295); Potassium 4.2 mmol/L (3.5-5.1); Sodium 129 mmol/L (136-145); Total Bilirubin 0.6 mg/dL (0.15-1.2); Total Protein 5.9 g/dL (6.6-8.7)
--- NOTE | 2019-10-28 12:00 | ONC FU_ITS ---
Dr. Hatch follow up note Patient: Richard Martin Unit #: [id number]: 1955 Dicatated By: Srinivas Hatch M.D.Date of Visit:Oct 28, 2019 Onc Med Follow-up/Prog Note History of Present Illness: Mr. Ramos is a 64-year-old gentleman with history of epigastric pain. Initially it was thought to be due to cardiac, but further evaluation led to GI workup with an EGD/colonoscopy done on 09/28/2018. The EGD exam showed severe inflammation noted in the distal esophagus, biopsies were obtained which confirmed adenocarcinoma.With normal expression of MMR/MSI, HER-2/evgeny negative, PDL 1 negative Stomach and duodenal exam was normal whereas colonoscopy showed 5 mm sessile polyp in hepatic flexure and in descending colon and in the rectum, there were removed ,came back benign. Patient denied any dysphagia, denies any weight loss, denies any hemoptysis or hematemesis, denies any jaundice, denies any shortness of breath. History of atrial fibrillation, on amlodipine and Eliquis He denied any bony pain or other pain, except chronic left upper quadrant abdominal pain which is there off and on for the last 10-12 years, when, as per patient he underwent pancreatic surgery for elevated white blood counts. About year ago patient underwent 'spots' removal from left kidney at [facility] in [place], no further treatment was offered but active surveillance and scheduled for CT scan of abdomen on 09/24/[address] [place] PET scan done on 10/23/2018 showed hypermetabolic primary esophageal carcinoma. Malignant upper abdominal lymphadenopathy, suspicious mediastinal lymphadenopathy subcentimeter right lower lobe nodule is too small to characterize. Started on FLOT regimen on on 12/23/2018. CT PET scan done after 3 cycles of chemotherapy on 01/22/2019 showed interval improvement in the distal esophageal carcinoma Resolution of upper abdominal and mediastinal lymphadenopathy New small right pleural effusion Patient was referred to GI surgical oncology at [facility], was evaluated by on 02/14/2019 as per discussion with him that discuss about patient in the tumor board and concluded that patient is not a candidate for esophagectomy because of extent of disease and recommended follow-up CT PET scan and continue with palliative chemotherapy. Follow-up CT PET scan after 7 cycles of FLOT regimen done on 04/30/2019 showed excellent response, no evidence of recurrent or residual malignancy. Abnormal uptake in the distal esophagus seen on prior study has normalized on the current, indicating complete response to therapy At that point, Mr Martin decided not to continue with systemic chemotherapy because of related side effects and toxicity. As he has high risk for local recurrence the role of consolidation therapy with combined chemoradiation was discussed. Mr Martin was referred to radiation oncology for evaluation and radiation oncology concurred with the plan and eventually Mr Martin elected to started on combined chemoradiation with weekly carboplatin/Taxol. He began treatment on 06/07/2019.and completed on 07/14/2019 Patient was seen by radiation oncology for follow-up on September 01, 2019 and at that time as per radiation note, patient was advised to go for EGD, as follow-up CT scan of chest abdomen showed progressive thickening of distal GE junction and proximal stomach but patient declined and he was offered CT PET scan, patient declined that to but agreed for follow-up CT scan in 3 months as patient was not symptomatic and he was not interested in any kind of therapy. Came for follow-up, now complaining of dyspnea on exertion for the last 2 weeks, and last week went to emergency room for evaluation where CTA chest showed no evidence of pulmonary embolism but large right pleural effusion and small left pleural effusion with stable thickening of distal esophagus. Thoracentesis was planned but patient was on Eliquis, case was discussed with Dr. Ortiz and now scheduled for Thursday and patient is off Eliquis now. Patient denies any hemoptysis or hematemesis patient denies any fever or chills patient denies any nausea or vomiting denies any diarrhea or constipation denies any dysphagia. Medications: amLODIPine Besylate 1 Tablet (of 10 mg) Tablet Oral daily, Apixaban 1 Tablet (of 5 mg) Oral b.i.d., Ativan 0.5 - 1 Tablet (of 1 mg) Oral t.i.d., B Complex 1 Capsule Capsule Oral daily, HYDROcodone-Acetaminophen 1 - 2 Tablet (of 5-325 mg) Oral daily PRN, Lisinopril 1 Tablet (of 40 mg) Oral b.i.d., Prochlorperazine Maleate 1 Tablet (of 10 mg) Oral q 4 hours, Sildenafil Citrate 1 Tablet (of 100 mg) Oral PRN, Vitamin D 1 Tablet Oral daily Allergies: No Known Allergies. Review of Systems: Constitutional - Appetite is good and weight is stable. No fever, chills, hot flashes, or night sweats. Energy level is fair, ENMT - Positive for sinus congestion/drainage. No mouth sores. No sore throat. No difficulty swallowing, Hematologic/Lymphatic - No abnormal bruising or bleeding, Respiratory - Positive for shortness of breath and cough. No pleuritic pain or hemoptysis, Cardiovascular - No angina pain. Pt reports occasional palpitations, Gastrointestinal - Positive for occasional nausea. No vomiting. No heartburn or acid reflux. Positive for diarrhea, no constipation. No blood in the stool or black stools, Genitourinary (M) - No dysuria or hematuria. No urinary frequency. No urgency or incontinence, Musculoskeletal - Pt reports bone pain, Neurologic - No headache or dizziness. No numbness/paresthesias or other focal neurologic symptoms, Psychiatric - No anxiety or depression. No insomnia. Vital Signs: Performed on Oct 28, 2019 08:15 Height - 72.00 in Weight - 189.6 lbs (LOW) BSA - 2.08 sq.m BMI - 25.71 Temperature - 97.3 F (LOW) Pulse - 111 /min (HIGH) Respiration - 24 /min BP - 131/94 mm(hg) O2 Sat - 92 % (LOW) Pain - 4 Performance Status: 1 - No physically strenuous activity, but ambulatory and able to carry out light or sedentary work (e.g. office work, light house work). (ECOG) Physical Examination: ENMT - No mouth sores no thrush no jaundice, Respiratory - Decreased breath sound in both bases more on the right side, Cardiovascular - Regular rate and rhythm of heart, Abdomen - Soft, bowel sounds present, Extremities - No visible edema. Lab/Imaging: Test performed on Aug 19, 2019 08:16 Sodium 137 mmol/L Potassium 4.2 mmol/L Chloride 102 mmol/L CO2 24 mmol/L Anion Gap 15.2 BUN 11 mg/dL Creatinine 1.0 mg/dL Cr Clearance (Est) 93.9400 mL/min eGFR 75.2 mL/min Glucose 136 mg/dL Calcium 9.8 mg/dL Protein, Total 6.4 g/dL Albumin 3.9 g/dL Globulin 2.5 g/dL Bilirubin, Total 0.5 mg/dL ALT (SGPT) 14 U/L AST (SGOT) 21 U/L Alkaline Phosphatase 101 IU/L WBC 5.6 10 3/uL RBC 4.10 10 6/uL HGB 12.8 g/dL HCT 38.5 % MCV 93.9 fL MCH 31.2 pg MCHC 33.2 g/dL RDW 16.4 % Platelet Count 347 10 3/cmm MPV 8.7 fL Neutrophils 3.2 10 3/uL Lymphocytes 1.6 10 3/uL Monocytes 0.5 10 3/uL Eosinophils 0.3 10 3/uL Basophils 0.0 10 3/uL Neutrophil % 55.8 % Lymphocyte % 29.0 % Monocyte % 8.9 % Eosinophil % 5.2 % Basophils % 0.7 % Impression: 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 pylori CT PET scan done on 10/23/2018 showed hypermetabolic activity in the distal one third of esophagus and the mass measuring 3.4 x 4.5 cm with SUV of 7.8. Metastatic adenopathy is present in the gastrohepatic ligament, peripancreatic nodes, and retroperitoneal lymph node in the right and left periaortic distributions. The index node in the gastrohepatic ligament measures 1.7 cm with FDG 3.1. In the mediastinum, there are multiple suspicious nodes in the right paratracheal and left paraesophageal territories. These have a high likelihood of malignancy Clinical stage T2-3, , N2,, MX HER-2/evgeny negative, PDL 1 negative, normal expression of MMR/MSI History of pancreatic surgery about 10-12 years ago for elevated white blood count now with off and on left upper quadrant pain/discomfort History of spot removal from his left kidney about year ago in [facility], now being observed with active surveillance. History of cholecystectomy Colonoscopy done on 09/28/2018 showed normal exam except benign sessile polyps removal from hepatic flexure, descending colon and rectum and also showed internal hemorrhoids. 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 Molecular studies negative for HER-2/evgeny status, and PDL 1. And normal expression of MMR/MSI. recommended treatment with FLOT regimen which will be given every 2 weeks ???[address] PET scan to assedess disease response. recommended adjusting his 5-FU dose by 15% for the first treatment, if tolerated then increase to the 100% as per protocol. Mr. Martin began his first cycle of treatment on 12/13/2018. He did have chemotherapy-induced neutropenia and was supported with Neupogen. His counts are recovered well. now on neulasta CT PET scan done after 3 cycles of chemotherapy with FLOT regimen showed good response interval improvement in distal esophageal carcinoma Resolution of upper abdominal and mediastinal lymphadenopathy New, small right pleural effusion. CT PET scan done after 7 cycles of FLOT regimen showed excellent response. No evidence of recurrent or residual malignancy. Abnormal uptake seen in distal esophageal on prior study has normalized. Patient decided to discontinue systemic chemotherapy on 04/25/2019 because of related side effect and toxicity, knowing the risk versus benefits with his decision. At that time role of consolidation therapy with combined chemoradiation therapy with weekly carboplatin and Taxol was discussed. Patient was referred to radiation oncology and they concur with the plan patient was started on combined chemoradiation with weekly carboplatin Taxol on 06/07/2019, completed on 07/14/2019 Plan: Discussed with patient regarding his his questions and concern regarding dyspnea on exertion and now with progressive pleural effusion, clinically it appears patient may have malignant pleural effusion so we will consider cytology and if is positive we will request next generation sequencing to identify targetable therapy. On the other hand if cytology is negative, consider EGD to evaluate persistent thickening seen in GE junction and proximal stomach. Again patient is not interested in any systemic therapy especially chemotherapy due to related side effects and toxicity but may consider immunotherapy or any other target therapy if indicated. Patient return to clinic 2 weeks after thoracentesis, by that time will have cytology report available to us and then plan accordingly. Signed By: Srinivas Hatch M.D. <<Signature on File>>
== END 2019-11-08 23:59 | disposition home or self-care (01) ==
LOC: ONCMED 06:49
PROVIDERS: PCP Emergency Medicine Emergency Medical Services; Referring Provider Radiology Radiation Oncology; Visit Provider Internal Medicine Hematology & Oncology
DX: C15.5 Malignant neoplasm of lower third of esophagus (principal); D70.1 Agranulocytosis secondary to cancer chemotherapy; T45.1X5A Adverse effect of antineoplastic and immunosuppressive drugs, initial encounter; I48.91 Unspecified atrial fibrillation; J44.9 Chronic obstructive pulmonary disease, unspecified; R13.19 Other dysphagia; I10 Essential (primary) hypertension; Z92.21 Personal history of antineoplastic chemotherapy; Z92.3 Personal history of irradiation
CPT/HCPCS: 36591; 80053; 85025; 85610; 99214

== ENCOUNTER 2019-10-31 06:09 | Day surgery (SDC) | payer OTHER, SELFPAY ==
[2019-10-28 10:18] VITALS: BMI 25.7
--- NOTE | 2019-10-31 | SCC_ITS ---
Procedure Done: Right [place] pleural drain placement 16.3 seconds of fluoroscopic guidance, for a cumulative dose of 3.34 mGy, was provided to Dr. Ortiz by the radiology department. C-arm images of the chest were saved for the patient's permanent record. [facility]
--- NOTE | 2019-10-31 | SCC_ITS ---
Procedure Done: Right [place] pleural drain placement 16.3 seconds of fluoroscopic guidance, for a cumulative dose of 3.34 mGy, was provided to Dr. Ortiz by the radiology department. C-arm images of the chest were saved for the patient's permanent record. [facility]
--- NOTE | 2019-10-31 06:14 | SC_ITS ---
WS: [id number] C-ARM RADIOGRAPHS CHEST; 2 IMAGES HISTORY: Tunneled pleural drain placement COMPARISON: None available. Intraoperative imaging during Green catheter placement. SC/C-arm FL for Drainage [id number] IMPRESSION: Intraoperative imaging during Green catheter placement.
[2019-10-31 06:22] VITALS: BP 105/80; PULSE 77; RESP 22; TEMP 36.4; O2SAT 96
--- NOTE | 2019-10-31 06:24 | W.PM.OPSUD ---
Surgery/Procedure H&P Update DATE OF PROCEDURE: October 31, 2019 DATE H&P PERFORMED: 10/27/19 H&P UPDATE INFORMATION: I have reviewed H&P completed within last 30 days, I have examined patient prior to procedure and No changes to prior documentation PREOP DIAGNOSIS: Right pleural effusion; history of esophageal carcinoma PRIMARY INDICATION FOR PROCEDURE: Highly symptomatic right pleural effusion with recent history for treatment of esophageal carcinoma PLANNED PROCEDURE: Operation Date: 10/31/19 07:00 Proposed Procedures p [place] Pleaural Catheter Insertion /j90 pleaural effusion(Not Applicable) - Valeriano Ortiz MD
[2019-10-31 06:59] LABS: Basophils # 0.1 10^3/uL (0.0-0.1); Basophils % 0.7 %; Eosinophils # 0.3 10^3/uL (0.0-0.8); Eosinophils % 3.4 %; Hematocrit 43.7 % (42.0-52.0); Hemoglobin 14.8 g/dL (11.7-16.6); Lymphocytes # 1.2 10^3/uL (0.8-4.8); Lymphocytes % 15.1 %; Mean Corpuscular HGB Conc 33.9 g/dL (30.0-36.0); Mean Corpuscular Hemoglobin 30.5 pg (28.0-34.0); Mean Corpuscular Volume 89.9 fL (80-94); Mean Platelet Volume 8.3 fL (7.4-10.4); Monocytes # 0.6 10^3/uL (0.2-0.9); Monocytes % 6.8 %; Neutrophils # 6.1 10^3/uL (1.8-7.7); Neutrophils % 73.9 %; Nucleated Red Blood Cells % 0 %; Platelet Count 397 10^3/cmm (130-400); Red Blood Count 4.86 10^6/uL (4.1-5.3); Red Cell Distribution Width 12.4 % (12.1-15.1); White Blood Count 8.2 10^3/uL (4.0-10.0)
[2019-10-31] MEDS: sodium chloride 0.9% 1,000 ML 30 ML IV (07:00)
--- NOTE | 2019-10-31 07:04 | P.ANESASSM_ITS ---
Pre-Anesthetic Assessment Pre-Anesthetic Assessment: Height/Weight: Height 1.83 m Weight 86.183 kg Temp Pulse Resp BP Pulse Ox 97.5 F L 77 22 H 105/80 96 10/31/19 06:22 10/31/19 06:22 10/31/19 06:22 10/31/19 06:22 10/31/19 06:22 Preop Diagnosis: Right pleural effusion; history of esophageal carcinoma Proposed Procedure: Operation Date: 10/31/19 07:00 Proposed Procedures p [place] Pleaural Catheter Insertion /j90 pleaural effusion(Not Applicable) - Valeriano Ortiz MD Last intake: Intake Last Liquid Date 10/30/19 Last Liquid Time 22:00 Last Solid Date 10/30/19 Last Solid Time 17:00 Social: Social History: Tobacco and No alcohol Exam: Pre-Anes Outpt Exam: alert, oriented x 3, clear to auscultation bilaterally and regular rate & rhythm Airway: Submandibular: WNL Cervical ROM: WNL MP: 3 Dentition: False (upper and lowers) History/ROS: No significant history except as noted Pulmonary: Pulmonary: DENNIS and SOB CV/HEM: CV/HEM: Afib and HTN : Comments: kidney ca Hepatic: Hepatic: None reported GI: GI: GERD Comments: esophageal ca Metabolic: Metabolic: None reported Musc/skel: Musc/skel: Lower Back Pain Neuropsych: Neuropsych: None reported Anesthetic Plan: ASA status: 4 Anesthesia: Anesthesia Evaluation and MAC Risk of > 500 ml blood loss (7ml/kg in children): No Meds/Allergies Current Medications: Current Medications Generic Name Dose Route Start Last Admin Trade Name Freq PRN Reason Stop Dose Admin Sodium Chloride 1,000 mls @ 30 ml s/hr 10/31/19 06:15 10/31/19 07:00 Sodium Chloride 0.9% IV 11/01/19 06:14 30 mls/hr .Q24H NESTOR Administration PFSH Anesthesia PFSH: Medical History Atrial fibrillation Esophageal cancer Hypertension Pleural effusion, right Renal carcinoma Surgical History H/O partial nephrectomy S/P appendectomy S/P cholecystectomy Family History Father Cancer Mother Cancer Social History Smoking and tobacco status: current every day smoker cigarettes Alcohol intake: former Data Anesthesia CBC & Chem 7: 10/31/19 06:52 Other Labs: Laboratory Results - last 48 hr 10/31/19 06:52 WBC 8.2 RBC 4.86 Hgb 14.8 Hct 43.7 MCV 89.9 MCH 30.5 MCHC 33.9 RDW 12.4 Plt Count 397 MPV 8.3 Neut % (Auto) 73.9 Lymph % (Auto) 15.1 [place] % (Auto) 6.8 Eos % (Auto) 3.4 Baso % (Auto) 0.7 Neut # (Auto) 6.1 Lymph # (Auto) 1.2 [place] # (Auto) 0.6 Eos # (Auto) 0.3 Baso # (Auto) 0.1 Nucleated RBC % (auto) 0 Nucleated RBCs # 0.0 Cardiac Studies: No Data to Display
[2019-10-31 07:08] LABS: INR 0.89 (0.8-1.2)
[2019-10-31 07:28] LABS: Anion Gap 15.9 (5-19); Blood Urea Nitrogen 12 mg/dL (8-23); Calcium 9.7 mg/dL (8.5-10.5); Carbon Dioxide 25 mmol/L (22-29); Chloride 93 mmol/L (98-107); Glomerular Filtration Rate 97.3 mL/min (90-130); Glucose 103 mg/dL (65-115); Osmolality Calculated 264 mOsm/kg (285-295); Potassium 4.9 mmol/L (3.5-5.1); Sodium 129 mmol/L (136-145)
[2019-10-31] MEDS: lidocaine 1% INJ 20 mL SUBCUT (07:32)
--- NOTE | 2019-10-31 07:48 | XR_ITS ---
WS: [id number] PORTABLE CHEST HISTORY: post darryl drain placement COMPARISON: 10/19/2019 LEFT subclavian Port-A-Cath with tip in the distal SVC is unchanged. [place] drain has been placed within the RIGHT lower thorax. The tip is directed inferior and medially . There is a small apical pneumothorax on the RIGHT. Small bilateral pleural effusions. LEFT pleural effusion has increased since 10/19/2019. Bibasilar areas of atelectasis. Cardiac size: Mildly enlarged cardiac silhouette. Mediastinum/Aorta: Mild atherosclerosis aorta. No osseous abnormality seen. XR/XR chest 1V portable [id number] IMPRESSION: 1. Interval insertion of a RIGHT [place] drain with the tip directed inferior a nd medial. 2. Small RIGHT apical pneumothorax, approximately 10-15%. 3. Small bilateral pleural effusions.
--- NOTE | 2019-10-31 07:58 | P.OP_ITS ---
Operative Report Date of procedure: October 31, 2019 Pre-op Diagnosis: Right pleural effusion; history of esophageal carcinoma Post-op diagnosis: same Procedure Done: Right [place] pleural drain placement Specimens removed/disposition: 2300 cc of clare-colored fluid sent to pathology for cytologic examination Surgeon: Valeriano Ortiz Anesthesia: MAC and Local (12 cc 1% lidocaine infiltrated locally) Complications: None: Post procedure chest x-ray pending Findings: Fluoroscopy utilized for needle, guidewire, dilator, sheath, and subsequent drain tubing positioning and placement Condition: stable Disposition: same day Brief History: 64-year-old gentleman with esophageal carcinoma status post radiotherapy and chemotherapy. Large, highly symptomatic right pleural effusion. Pleural drain placement was recommended to allow for management. Details risk procedure carefully and frankly discussed. Proper consents have been reviewed and signed. Procedure: The entire right chest was sterilely prepped and draped. 1% lidocaine was infiltrated in the posterior axillary line approximately at the seventh interspace level. Introducer needle was then placed with return of clare-colored pleural fluid. Fluoroscopy was subsequently utilized throughout the procedure for guidewire and dilator advancement and subsequent introducer positioning and [place] catheter drain placement. Lidocaine was utilized to infiltrate the subcutaneous layer continuing anteriorly. A #11 scalpel blade was used to incise the skin on the guidewire and also anteriorly. Tunneler was utilized to pass the drain anteriorly to posteriorly in the subcutaneous fashion. Dilators were then placed over the guidewire to dilate the tract into the pleural space. Dilator and tear away sheath was then placed. Dilator was removed and pleural drain was placed to the tear-away sheath and the tear-away sheath was then removed. Drain was easily aspirated of large volume of pleural fluid ultimately total 2300 cc. Specimen was sent to pathology for cytologic examination. Once completed, the incisions were closed with 3-0 Vicryl suture. A silk suture was utilized to secure the drain to the skin. Patient tolerated procedure well. Sterile dressings were applied. Mr. Martin was taken to the outpatient surgery department where a chest x-ray is pending. I did sales counselor with his at the completion of the procedure. He will subsequently be discharged home with home health assistance with management of his pleural drain. I will see him in clinic next week.
[2019-10-31 08:03] VITALS: BP 104/84; PULSE 76; RESP 18; TEMP 36.3; O2SAT 94
[2019-10-31 08:34] VITALS: BP 109/85; PULSE 80; RESP 18; TEMP 36.3; O2SAT 95
== END 2019-10-31 09:21 | disposition home or self-care (01) ==
PROVIDERS: PCP Emergency Medicine Emergency Medical Services; Visit Provider Thoracic Surgery (Cardiothoracic Vascular Surgery)
PROC: (CPT 32550; principal; 2019-10-31 07:00)
DX: J90 Pleural effusion, not elsewhere classified (principal); Z85.038 Personal history of other malignant neoplasm of large intestine; I48.91 Unspecified atrial fibrillation; I10 Essential (primary) hypertension; K21.9 Gastro-esophageal reflux disease without esophagitis; F17.210 Nicotine dependence, cigarettes, uncomplicated
CPT/HCPCS: 32550; 12345; 36415; 71045; 75989; 76000; 80048; 85025; 85610; 88112; 88305; 96365; C1729; J0690; J2001; J2704; J3010; J7030

== ENCOUNTER 2019-11-10 09:01 | Outpatient (CLI) | payer OTHER, SELFPAY ==
--- NOTE | 2019-11-10 09:07 | XRR_ITS ---
PROCEDURE INFORMATION: Exam: XR Chest, 2 Views Exam date and time: 11/10/2019 9:23 AM Age: 64 years old Clinical indication: Type not specified; Patient HX: C/O chest pain, cough, shortness of breath. HX of esophagus cancer; Additional info: Pleural effusion TECHNIQUE: Imaging protocol: XR of the chest Views: 2 views. COMPARISON: CR XR chest 1V portable [id number] 10/31/2019 8:02 AM FINDINGS: Tubes, catheters and devices: Left central venous catheter tip in the superior vena cava. Right pleural tube unchanged. Lungs: Bilateral lower lung consolidation. Pleural space: Bilateral pleural effusions, left greater than right, unchanged. No pneumothorax. Heart/Mediastinum: No cardiomegaly. Bones/joints: No acute findings. XR/XR chest 2V* [id number] IMPRESSION: Bilateral pleural effusions, left greater than right associated with bilateral lower lung consolidation, unchanged. Right pleural tube unchanged.
== END 2019-11-10 09:02 | disposition home or self-care (01) ==
PROVIDERS: PCP Emergency Medicine Emergency Medical Services; Visit Provider Thoracic Surgery (Cardiothoracic Vascular Surgery)
DX: J90 Pleural effusion, not elsewhere classified (principal)
CPT/HCPCS: 71046

== ENCOUNTER 2019-11-15 06:48 | Outpatient (RCR) | payer OTHER, SELFPAY ==
[2019-11-15 13:26] LABS: Basophils # 0.1 10^3/uL (0.0-0.1); Basophils % 0.6 %; Eosinophils # 0.2 10^3/uL (0.0-0.8); Eosinophils % 1.7 %; Hematocrit 39.6 % (42.0-52.0); Hemoglobin 13.3 g/dL (11.7-16.6); Lymphocytes # 1.2 10^3/uL (0.8-4.8); Lymphocytes % 11.6 %; Mean Corpuscular HGB Conc 33.6 g/dL (30.0-36.0); Mean Corpuscular Hemoglobin 30.4 pg (28.0-34.0); Mean Corpuscular Volume 90.4 fL (80-94); Mean Platelet Volume 8.5 fL (7.4-10.4); Monocytes # 0.6 10^3/uL (0.2-0.9); Monocytes % 5.9 %; Neutrophils # 8.5 10^3/uL (1.8-7.7); Neutrophils % 79.8 %; Nucleated Red Blood Cells % 0 %; Platelet Count 435 10^3/cmm (130-400); Red Blood Count 4.38 10^6/uL (4.1-5.3); Red Cell Distribution Width 12.6 % (12.1-15.1); White Blood Count 10.6 10^3/uL (4.0-10.0)
[2019-11-15 13:43] LABS: Alanine Aminotransferase 19 U/L (0-41); Alkaline Phosphatase 115 IU/L (40-130); Anion Gap 12.6 (5-19); Aspartate Amino Transferase 23 U/L (0-40); Blood Urea Nitrogen 17 mg/dL (8-23); Calcium 8.5 mg/dL (8.5-10.5); Carbon Dioxide 24 mmol/L (22-29); Chloride 96 mmol/L (98-107); Globulin 2.5 g/dL (1.3-4.6); Glucose 153 mg/dL (65-115); Osmolality Calculated 265 mOsm/kg (285-295); Potassium 4.6 mmol/L (3.5-5.1); Sodium 128 mmol/L (136-145); Total Bilirubin 0.4 mg/dL (0.15-1.2); Total Protein 5.5 g/dL (6.6-8.7)
--- NOTE | 2019-11-15 17:47 | ONC FU_ITS ---
Dr. Hatch follow up note Patient: Richard Martin Unit #: [id number]: 1955 Dicatated By: Srinivas Hatch M.D.Date of Visit:Nov 15, 2019 Onc Med Follow-up/Prog Note History of Present Illness: Mr. Ramos is a 64-year-old gentleman with history of epigastric pain. Initially it was thought to be due to cardiac, but further evaluation led to GI workup with an EGD/colonoscopy done on 09/28/2018. The EGD exam showed severe inflammation noted in the distal esophagus, biopsies were obtained which confirmed adenocarcinoma.With normal expression of MMR/MSI, HER-2/evgeny negative, PDL 1 negative Stomach and duodenal exam was normal whereas colonoscopy showed 5 mm sessile polyp in hepatic flexure and in descending colon and in the rectum, there were removed ,came back benign. Patient denied any dysphagia, denies any weight loss, denies any hemoptysis or hematemesis, denies any jaundice, denies any shortness of breath. History of atrial fibrillation, on amlodipine and Eliquis He denied any bony pain or other pain, except chronic left upper quadrant abdominal pain which is there off and on for the last 10-12 years, when, as per patient he underwent pancreatic surgery for elevated white blood counts. About year ago patient underwent 'spots' removal from left kidney at in [place], no further treatment was offered but active surveillance and scheduled for CT scan of abdomen on 09/24/[address] [place] PET scan done on 10/23/2018 showed hypermetabolic primary esophageal carcinoma. Malignant upper abdominal lymphadenopathy, suspicious mediastinal lymphadenopathy subcentimeter right lower lobe nodule is too small to characterize. Started on FLOT regimen on on 12/23/2018. CT PET scan done after 3 cycles of chemotherapy on 01/22/2019 showed interval improvement in the distal esophageal carcinoma Resolution of upper abdominal and mediastinal lymphadenopathy New small right pleural effusion Patient was referred to GI surgical oncology at [facility], was evaluated by on 02/14/2019 as per discussion with him that discuss about patient in the tumor board and concluded that patient is not a candidate for esophagectomy because of extent of disease and recommended follow-up CT PET scan and continue with palliative chemotherapy. Follow-up CT PET scan after 7 cycles of FLOT regimen done on 04/30/2019 showed excellent response, no evidence of recurrent or residual malignancy. Abnormal uptake in the distal esophagus seen on prior study has normalized on the current, indicating complete response to therapy At that point, Mr Martin decided not to continue with systemic chemotherapy because of related side effects and toxicity. As he has high risk for local recurrence the role of consolidation therapy with combined chemoradiation was discussed. Mr Martin was referred to radiation oncology for evaluation and radiation oncology concurred with the plan and eventually Mr Martin elected to started on combined chemoradiation with weekly carboplatin/Taxol. He began treatment on 06/07/2019.and completed on 07/14/2019 Patient was seen by radiation oncology for follow-up on September 01, 2019 and at that time as per radiation note, patient was advised to go for EGD, as follow-up CT scan of chest abdomen showed progressive thickening of distal GE junction and proximal stomach but patient declined and he was offered CT PET scan, patient declined that to but agreed for follow-up CT scan in 3 months as patient was not symptomatic and he was not interested in any kind of therapy. Underwent right thoracentesis and chest tube placement for recurrent pleural effusion in the last week of October 2019 and cytology confirmed adenocarcinoma, patient felt better after thoracentesis no use chest tube on as-needed basis. Follow-up chest x-ray done on November 10, 2019 showed bilateral pleural effusion left greater than than right associated with bilateral lower lung consolidation, unchanged, right pleural tube unchanged. Came for follow-up, denies any specific complaints, no more shortness of breath, no hemoptysis or hematemesis, no fever chills, no hemoptysis or hematemesis, no dysphagia, Medications: amLODIPine Besylate 1 Tablet (of 10 mg) Tablet Oral daily, Apixaban 1 Tablet (of 5 mg) Oral b.i.d., Ativan 0.5 - 1 Tablet (of 1 mg) Oral t.i.d., B Complex 1 Capsule Capsule Oral daily, HYDROcodone-Acetaminophen 1 - 2 Tablet (of 5-325 mg) Oral daily PRN, Lisinopril 1 Tablet (of 40 mg) Oral b.i.d., Prochlorperazine Maleate 1 Tablet (of 10 mg) Oral q 4 hours, Sildenafil Citrate 1 Tablet (of 100 mg) Oral PRN, Vitamin D 1 Tablet Oral daily Allergies: No Known Allergies. Review of Systems: Review of Systems is not available for this patient. Vital Signs: Performed on Nov 15, 2019 15:49 Height - 72.00 in Weight - 190.4 lbs (HIGH) BSA - 2.09 sq.m BMI - 25.82 Temperature - 98.5 F Pulse - 93 /min Respiration - 20 /min BP - 98/52 mm(hg) O2 Sat - 95 % (LOW) Pain - 0 Performance Status: 1 - No physically strenuous activity, but ambulatory and able to carry out light or sedentary work (e.g. office work, light house work). (ECOG) Physical Examination: ENMT - No mouth sores, no thrush, no jaundice, Respiratory - Decreased breath sound bilaterally, dullness on percussion bilaterally. Otherwise clear but poor air entry, Cardiovascular - Regular rate and rhythm of heart, Abdomen - Soft, bowel sounds present, Extremities - Trace edema bilaterally. Lab/Imaging: Test performed on Oct 28, 2019 08:25 Sodium 129 mmol/L Potassium 4.2 mmol/L Chloride 93 mmol/L CO2 24 mmol/L Anion Gap 16.2 BUN 11 mg/dL Creatinine 0.8 mg/dL Cr Clearance (Est) 117.4300 mL/min eGFR 97.3 mL/min Glucose 165 mg/dL Calcium 8.8 mg/dL Protein, Total 5.9 g/dL Albumin 3.7 g/dL Globulin 2.2 g/dL Bilirubin, Total 0.6 mg/dL ALT (SGPT) 21 U/L AST (SGOT) 24 U/L Alkaline Phosphatase 114 IU/L PT 13.50 SECONDS WBC 7.7 10 3/uL INR 1.00 RBC 4.56 10 6/uL HGB 14.2 g/dL HCT 42.1 % MCV 92.3 fL MCH 31.1 pg MCHC 33.7 g/dL RDW 12.6 % Platelet Count 371 10 3/cmm MPV 8.8 fL Neutrophils 5.6 10 3/uL Lymphocytes 1.3 10 3/uL Monocytes 0.5 10 3/uL Eosinophils 0.3 10 3/uL Basophils 0.0 10 3/uL Neutrophil % 72.9 % Lymphocyte % 16.7 % Monocyte % 6.2 % Eosinophil % 3.4 % Basophils % 0.5 % NRBC % 0 % Impression: 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 pylori CT PET scan done on 10/23/2018 showed hypermetabolic activity in the distal one third of esophagus and the mass measuring 3.4 x 4.5 cm with SUV of 7.8. Metastatic adenopathy is present in the gastrohepatic ligament, peripancreatic nodes, and retroperitoneal lymph node in the right and left periaortic distributions. The index node in the gastrohepatic ligament measures 1.7 cm with FDG 3.1. In the mediastinum, there are multiple suspicious nodes in the right paratracheal and left paraesophageal territories. These have a high likelihood of malignancy Clinical stage T2-3, , N2,, MX HER-2/evgeny negative, PDL 1 negative, normal expression of MMR/MSI History of pancreatic surgery about 10-12 years ago for elevated white blood count now with off and on left upper quadrant pain/discomfort History of spot removal from his left kidney about year ago in [facility], now being observed with active surveillance. History of cholecystectomy Colonoscopy done on 09/28/2018 showed normal exam except benign sessile polyps removal from hepatic flexure, descending colon and rectum and also showed internal hemorrhoids. 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 Molecular studies negative for HER-2/evgeny status, and PDL 1. And normal expression of MMR/MSI. recommended treatment with FLOT regimen which will be given every 2 weeks ???[address] scan to assedess disease response. recommended adjusting his 5-FU dose by 15% for the first treatment, if tolerated then increase to the 100% as per protocol. Mr. Martin began his first cycle of treatment on 12/13/2018. He did have chemotherapy-induced neutropenia and was supported with Neupogen. His counts are recovered well. now on neulasta CT PET scan done after 3 cycles of chemotherapy with FLOT regimen showed good response interval improvement in distal esophageal carcinoma Resolution of upper abdominal and mediastinal lymphadenopathy New, small right pleural effusion. CT PET scan done after 7 cycles of FLOT regimen showed excellent response. No evidence of recurrent or residual malignancy. Abnormal uptake seen in distal esophageal on prior study has normalized. Patient decided to discontinue systemic chemotherapy on 04/25/2019 because of related side effect and toxicity, knowing the risk versus benefits with his decision. At that time role of consolidation therapy with combined chemoradiation therapy with weekly carboplatin and Taxol was discussed. Patient was referred to radiation oncology and they concur with the plan patient was started on combined chemoradiation with weekly carboplatin Taxol on 06/07/2019, completed on 07/14/2019 Plan: Discussed with patient regarding his labs white blood count 10.6 hemoglobin 13.3 crit 39.6 platelets 435,000 CMP within normal limit except sodium 128 glucose 153 Clinically, patient doing reasonably well, now comfortable with right thoracentesis but his follow-up chest x-ray done on November 10, 2019 showed bilateral pleural effusion more on the left, cytology has confirmed malignant pleural effusion, rule of pleurodesis and systemic therapy with chemotherapy regimen FOLFOX or Cyramza/Taxol or cisplatin/Xeloda was discussed but patient has mild bilateral peripheral neuropathy involving hands and feet and concern and also concerned about side effects related to systemic chemotherapy and overall prognosis. Patient is not sure about starting any sort of treatment rather prefer comfortable measures knowing the risk versus benefits involving observation alone. Role of hospice care was discussed but patient declined at this moment as his brother is also undergoing hospice care. He will discuss with his kids and his and get back to us in a week with his decision regarding palliative therapy versus hospice care. The patient decided to proceed with palliative treatment, then will request pathology to consider molecular profiling on positive pleural fluid cytology to identify targetable therapy. Signed By: Srinivas Hatch M.D. <<Signature on File>>
== END 2019-12-09 23:59 | disposition home or self-care (01) ==
LOC: ONCMED 06:48
PROVIDERS: PCP Emergency Medicine Emergency Medical Services; Referring Provider Radiology Radiation Oncology; Visit Provider Internal Medicine Hematology & Oncology
DX: C15.5 Malignant neoplasm of lower third of esophagus (principal); J44.9 Chronic obstructive pulmonary disease, unspecified; I10 Essential (primary) hypertension; J91.0 Malignant pleural effusion; I48.91 Unspecified atrial fibrillation; Z79.01 Long term (current) use of anticoagulants; Z92.21 Personal history of antineoplastic chemotherapy; Z92.3 Personal history of irradiation; Z79.891 Long term (current) use of opiate analgesic; G62.9 Polyneuropathy, unspecified
CPT/HCPCS: 36591; 80053; 85025; 99214

== ENCOUNTER 2019-11-28 08:26 | Outpatient (CLI) | payer OTHER, SELFPAY ==
--- NOTE | 2019-11-28 08:35 | USCV_ITS ---
Richard Martin Age: 64 Gender: M : 1955 Exam Date: 11/28/2019 08:50 Ordering Phys: Derrek Angelo MD Technologist: Charlotte Vasques [place] [facility] [place]B. PT HAS CANCER BP: / HR: 94 Rhythm: Atrial fibrillation Technical Quality: Suboptimal MEASUREMENTS (Male / Female) Normal Values 2D ECHO LV Diastolic Diameter PLAX 3.6 cm 4.2 - 5.9 / 3.9 - 5.3 cm LV Systolic Diameter PLAX 1.9 cm LV Chamber Size 3.3 cm IVS Diastolic Thickness 0.9 cm 0.6 - 1.0 / 0.6 - 0.9 cm IVS Systolic Thickness 1.4 cm LVPW Diastolic Thickness 1.3 cm 0.6 - 1.0 / 0.6 - 0.9 cm LVPW Systolic Thickness 1.3 cm RV Chamber Size 3.5 cm LVOT Diameter 2.1 cm LV Ejection Fraction 2D Teich 79.5 % LV Ejection Fraction MOD 2C 56.4 % LV Ejection Fraction 2C AL 54.2 % LA Diameter 3.8 cm LA Width 3.3 cm LA Height 3.9 cm RA Width 3.6 cm RA Height 3.9 cm Aorta at Sinotubular Diameter 4.4 cm M-MODE LV Diastolic Diameter MM 5.0 cm 4.2 - 5.9 / 3.9 - 5.3 cm LV Systolic Diameter MM 3.9 cm LV Ejection Fraction MM Teich 45.9 % IVS Diastolic Thickness MM 0.8 cm 0.6 - 1.0 / 0.6 - 0.9 cm IVS Systolic Thickness MM 1.6 cm LVPW Diastolic Thickness MM 1.2 cm 0.6 - 1.0 / 0.6 - 0.9 cm LVPW Systolic Thickness MM 1.7 cm RV Diastolic Diameter MM 2.1 cm Aortic Annulus Diameter 4.2 cm LA Ao Ratio MM 0.9 MV E Point Septal Separation 0.7 cm DOPPLER AV Peak Velocity 100.0 cm/s LVOT Peak Velocity 84.0 cm/s AV Area Cont Eq vti 2.8 cm squared AV Area Cont Eq pk 3.0 cm squared MV Area PHT 5.2 cm squared MV E' Velocity 15.0 cm/s Mitral E to MV E' Ratio 6.5 Mitral E to LV E' Lateral Ratio 5.5 Mitral E to LV E' Septal Ratio 7.7 TR Peak Velocity 278.5 cm/s TR Peak Gradient 31.0 mmHg TR Mean Velocity 215.2 cm/s TR Mean Gradient 19.4 mmHg TR Velocity Time Integral 79.8 cm Right Atrial Pressure 15.0 mmHg Pulmonary Artery Systolic Pressu 46.0 mmHg PV Peak Velocity 64.0 cm/s RV Acceleration Time 0.1 s RV Ejection Time 0.2 s RV AcT/ET 0.4 FINDINGS Left Ventricle The rhythm is irregular and tachycardic likely atrial fibrillation. Patient has a drain in place and is very short of breath so the study is suboptimal. The left ventricle is probably normal in size and lower limit of normal in function. Rough estimate of the ejection fraction is 55%. There are no obvious wall motion disturbances. Cannot determine diastolic function. Right Ventricle Normal right ventricular size and systolic function. Mild pulmonary hypertension, RVSP 46 mmHg. Right Atrium The right atrium is normal in size. Left Atrium The left atrium is normal in size. Mitral Valve Mitral valve is not well seen and there is no obvious regurgitation or stenosis Aortic Valve Aortic valve is not well seen and there is no aortic stenosis or regurgitation Tricuspid Valve Structurally normal tricuspid valve. Mild tricuspid valve regurgitation. Pulmonic Valve Pulmonic valve not well visualized. Pericardium There is a moderate sized pleural effusion with at least 2 pleural-based masses noted. This has the appearance of a pleural space tumor. There may be a small pericardial effusion but it is trivial. Aorta Normal ascending aorta dimension. CONCLUSIONS The rhythm is irregular and tachycardic likely atrial fibrillation. Patient has a drain in place and is very short of breath so the study is suboptimal. The left ventricle is probably normal in size and lower limit of normal in function. Rough estimate of the ejection fraction is 55%. There are no obvious wall motion disturbances. Cannot determine diastolic function. Normal right ventricular size and systolic function. Mild pulmonary hypertension, RVSP 46 mmHg. There is a moderate sized pleural effusion with at least 2 pleural-based masses noted. This has the appearance of a pleural space tumor. There may be a small pericardial effusion but it is trivial. There are no prior echocardiogram studies to compare. Dr. Tom Green MD (Electronically Signed) Final Date: 28 November 2019 17:04 S
== END 2019-11-28 08:27 | disposition home or self-care (01) ==
LOC: RAD 08:28
PROVIDERS: PCP Emergency Medicine Emergency Medical Services; Visit Provider Internal Medicine Clinical Cardiac Electrophysiology
DX: R06.02 Shortness of breath (principal); I27.0 Primary pulmonary hypertension; J90 Pleural effusion, not elsewhere classified
CPT/HCPCS: 93306